=== PATIENT | female | born 1940 | race Caucasian/White ===

== ENCOUNTER → 2017-10-20 13:33 | Outpatient (CLI) | payer MEDICARE, OTHER, SELFPAY ==
--- NOTE | 2017-10-20 | DI.MG.S_ITS ---
BILATERAL DIGITAL SCREENING MAMMOGRAM 3D/2D WITH CAD: 10/20/2017 CLINICAL: Routine screening. Family history of breast cancer. Comparison is made to exams dated: 09/24/2016 mammogram, 07/31/2015 mammogram, and 07/12/2014 mammogram - [facility]. There are scattered fibroglandular elements in both breasts. Current study was also evaluated with a Computer Aided Detection (CAD) system. There is a calcification in the right breast at 12 o'clock middle depth. No other significant masses, calcifications, or other findings are seen in either breast. IMPRESSION: INCOMPLETE: NEEDS ADDITIONAL IMAGING EVALUATION The calcification in the right breast is indeterminate. Additional views with possible ultrasound are recommended. This exam was interpreted at Station ID: [id number]. NOTE: For mammograms, a report in lay terms will be sent to the patient. Approximately 15% of breast malignancies will not be visualized mammographically. In the management of a palpable breast mass, a negative mammogram must not discourage biopsy of a clinically suspicious lesion. Electronically Signed By: Hayden lozoya/graham:10/21/2017 07:39:16 letter sent: Additional Imaging Needed ACR BI-RADS Category 0: Incomplete [id number]
== END ==
PROVIDERS: Family Provider Family Medicine; PCP Family Medicine; Visit Provider Family Medicine
DX: Z12.31 Encounter for screening mammogram for malignant neoplasm of breast (principal); Z80.3 Family history of malignant neoplasm of breast; R92.1 Mammographic calcification found on diagnostic imaging of breast
CPT/HCPCS: 77063; 77067

== ENCOUNTER → 2017-11-18 10:02 | Outpatient (CLI) | payer MEDICARE, OTHER, SELFPAY ==
--- NOTE | 2017-11-18 | DI.MG.S_ITS ---
UNILATERAL RIGHT DIGITAL DIAGNOSTIC MAMMOGRAM 3D/2D WITH ADDITIONAL VIEWS: 11/18/2017 CLINICAL: Additional evaluation requested from prior study. Comparison is made to exams dated: 10/20/2017 mammogram, 09/24/2016 mammogram, and 07/31/2015 mammogram - [facility]. There are scattered fibroglandular elements in right breast. There are a linear heterogeneous calcifications in the right breast at 12 o'clock middle depth. These are more numerous than on prior exams. No other significant masses or calcifications are seen in the breast. IMPRESSION: SUSPICIOUS OF MALIGNANCY The linear heterogeneous calcifications in the right breast are at a low suspicion for malignancy. Differential considerations include dystrophic calcifications associated with scar. A stereotactic biopsy is recommended to exclude neoplsm. This exam was interpreted at Station ID: [id number]. NOTE: For mammograms, a report in lay terms will be sent to the patient. Approximately 15% of breast malignancies will not be visualized mammographically. In the management of a palpable breast mass, a negative mammogram must not discourage biopsy of a clinically suspicious lesion. Electronically Signed By: Shakila davis/:11/18/2017 10:38:48 letter sent: Biopsy Required ACR BI-RADS Category 4a: Suspicious abnormality - low suspicion for malignancy [id number]
== END ==
PROVIDERS: PCP Family Medicine; Visit Provider Family Medicine
DX: R92.1 Mammographic calcification found on diagnostic imaging of breast (principal)
CPT/HCPCS: 77065; G0279

== ENCOUNTER → 2017-12-14 08:26 | Outpatient (CLI) | payer MEDICARE, OTHER, SELFPAY ==
--- NOTE | 2017-12-14 | DI.ECHO.S_ITS ---
[facility] +---------+ : : [address] [place] : : : : [id number] : : : : Phone: [phone]+ Echocardiogram Report + + :Name: ROMMEL DAWKINS Study Date: 12/14/2017 Height: 63 in : :[facility] Weight: 145 lb : : Gender: Female BSA: 1.7 m2 : :: 1940 Age: 77 yrs BP: 152/76 mmHg: :Reason For Study: Palpitations : : Performed By: Monik Ji : :Referring: HSANTHI ARVIZU : + + Interpretation Summary Comparison is made with the echocardiogram of 07-25-15. Please note that the patient was in bigeminy during most of the exam. The left ventricle is normal in size. Left ventricular wall thickness is mildly increased. Proximal septal thickening is noted. The ejection fraction is estimated to be 60-65%. Left ventricular wall motion is normal. Diastolic parameters suggest a relaxation abnormality of the left ventricle, consistent with probable normal filling pressures. The right ventricle grossly appears normal in size with probable normal systolic function. No hemodynamically significant valvular abnormalities. Procedure: A two-dimensional transthoracic echocardiogram with color flow and Doppler was performed. The study quality was technically good. Comparison is made with the echocardiogram of 07-25-15. The patient had frequent PVCs during the exam. Left Ventricle: The left ventricle is normal in size. Left ventricular wall thickness is mildly increased. Proximal septal thickening is noted. The ejection fraction is estimated to be 60-65%. Left ventricular wall motion is normal. Diastolic parameters suggest a relaxation abnormality of the left ventricle, consistent with probable normal filling pressures. Right Ventricle: The right ventricle grossly appears normal in size with probable normal systolic function. Atria: The left atrium is mildly dilated. The right atrium is mildly dilated. The interatrial septum is intact with no evidence for an atrial septal defect. Mitral Valve: The mitral valve leaflets appear borderline thickened, but open well. There is mild calcification extending into the subvalvular apparatus. There is mild mitral regurgitation. Aortic Valve: The aortic valve is trileaflet. The aortic valve opens well. There is no aortic valve stenosis. There is trace aortic regurgitation. Tricuspid Valve: The tricuspid valve is normal. There is trace tricuspid regurgitation. Pulmonary artery pressures cannot be estimated because of the lack of a measurable TR jet velocity but the IVC suggests a CVP of around 3 mmHg. Pulmonic Valve: The pulmonic valve is not well seen, but is grossly normal. There is mild pulmonic regurgitation. Great Vessels: The aortic root is normal size. The ascending aorta is normal in size. The aortic arch is normal in size. The IVC is of normal diameter and collapses greater than 50% with a sniff. This suggests a low right atrial pressure of 3 mm Hg. Pericardium/ Pleura There is no pericardial effusion. There is no pleural effusion. MMode/2D Measurements & Calculations LVIDd: 4.2 cm Ao root diam: 3.3 cm LVIDs: 2.8 cm Aortic Jxn: 2.6 cm FS: 31.9 % asc Aorta Diam: 3.5 cm EPSS: 0.20 cm Ao Arch Diam (Prox Trans): 2.8 cm IVSd: 0.95 cm LVPWd: 0.83 cm LV dyer. diameter/BSA (cm/m^2): 2.5 LV sys. diameter/BSA (cm/m^2): 1.7 LA dimension: 4.3 cm RA long axis: 4.7 cm LA A2 area: 24.2 cm2 RA area: 18.1 cm2 LA A4 area: 23.4 cm2 RA vol: 59.7 ml LA length (vol): 5.5 cm RA : 35.4 ml/m2 LA vol: 87.6 ml IVC diam: 1.8 cm LA vol index: 51.9 ml/m2 RVDd major: 4.6 cm RVD2 (mid): 3.2 cm Doppler Measurements & Calculations Ao V2 max: 190.6 cm/sec MV E max alan: 66.7 cm/sec Ao V2 mean: 102.4 cm/sec MV A max alan: 77.2 cm/sec Ao max P.5 mmHg MV E/A: 0.86 Ao mean P.5 mmHg Med Peak E' Alan: 6.0 cm/sec Ao V2 VTI: 35.8 cm E/E' med: 11.1 Lat Peak E' Alan: 6.0 cm/sec E/E' lat: 11.1 E/e' average: 11.1 MV dec time: 0.29 sec MV P1/2t: 84.2 msec TR max alan: 275.4 cm/sec MV P1/2t max alan: 67.4 cm/sec TR max P.3 mmHg MVA(P1/2t): 2.6 cm2 PA V2 max: 97.1 cm/sec PA V2 mean: 62.2 cm/sec PA mean P.8 mmHg PA Accel Time: 0.08 sec Electronically signed by: Natalio Vyas M.D. on Reading Physician:12/14/2017 08:10 PM
== END ==
PROVIDERS: PCP Family Medicine; Visit Provider Family Medicine
DX: I34.0 Nonrheumatic mitral (valve) insufficiency (principal); I37.1 Nonrheumatic pulmonary valve insufficiency; R00.2 Palpitations
CPT/HCPCS: 93306

== ENCOUNTER 2018-02-19 16:44 | Emergency (ER) | payer MEDICARE, OTHER, SELFPAY ==
[2018-02-19 16:59] VITALS: BP 224/89; PULSE 60; RESP 18; TEMP 36.5; O2SAT 97; BMI 24.0
--- NOTE | 2018-02-19 17:21 | DI.RAD.S_ITS ---
PROCEDURE: XR NASAL BONES MIN 3V INDICATIONS: tripped and fell, now with nasal abrasion/swelling and pain TECHNIQUE: 3 views of the nasal bones acquired. COMPARISON: None. FINDINGS: Bones: No convincing radiographic evidence of a nasal fracture. Nasal septum is midline. Moderate multilevel degenerative changes of the cervical spine. Dental amalgam noted. Soft tissues: No suspicious soft tissue calcifications. IMPRESSION: No convincing radiographic evidence of an acute nasal fracture. Consider followup radiographs or facial CT if there is continued clinical concern. Dictated by: Madi Conteh M.D. on 02/19/2018 at 18:11 Approved by: Madi Conteh M.D. on 02/19/2018 at 18:15
--- NOTE | 2018-02-19 19:07 | ED.FALL ---
HPI - Fall General Chief Complaint: Fall Stated Complaint: walking and fell and hurt face Time Seen by Provider: 02/19/18 18:29 Source: patient Mode of arrival: ambulatory Limitations: no limitations History of Present Illness HPI Narrative: 77-year-old nonsmoking female, without any use of blood thinners or alcohol presents with a chief complaint of a mechanical ground level fall just prior to arrival. She was walking and tripped, falling forward and striking her face. She denies loss of consciousness, nausea, vomiting or any focal neurologic findings. She has some tenderness to the bridge of her nose and a small superficial laceration as well as some tenderness to her left thumb which is worse with motion. She denies any neck or back pain. MD complaint: fall Onset (ago): minute(s) Fall from: standing Fall witnessed: no Place fall occurred: home Loss of consciousness: none Prolonged down time: no Symptoms prior to fall: none Context: tripped/slipped Location of injury: head and face Related Data Home Medications Medication Instructions Recorded Confirmed [FISH OIL] PO Q DAY #2 06/01/07 alprazolam 0.25 mg PO HSP #0 06/14/11 HYDROCODONE/ACET 2 tab PO Q4HP #0 06/20/11 (Hydrocodon-Acetaminophen 5-325) Allergies Allergy/AdvReac Type Severity Reaction Status Date / Time Tetracyclines [TETRACYCLINES] Allergy Severe MANY Verified 02/19/18 17:11 YEARS AGO, ALDEN SHOT HALLUCINATIONS Review of Systems Review of Systems All systems reviewed & are unremarkable except as noted in HPI and below Constitutional Denies chills, Denies fever(s), Reports headache(s), Denies lethargy and Denies weakness Eyes Denies change in vision, Denies eye discharge, Denies irritation and Denies loss of vision ENT Ears, Nose, Mouth, and Throat: Denies change in voice, Reports headache(s), Denies neck pain, Reports nose pain and Denies sore throat Cardiovascular Denies chest pain, Denies irregular heart rhythm, Denies lightheadedness, Denies palpitations, Denies dyspnea, Denies dyspnea on exertion and Denies orthopnea Respiratory Denies cough, Denies dyspnea, Denies dyspnea on exertion and Denies wheezing Gastrointestinal Gastrointestinal: Denies abdominal pain, Denies change in bowel habits, Denies diarrhea, Denies nausea and Denies vomiting Genitourinary Denies hematuria, Denies flank pain, Denies urinary incontinence and Denies urinary urgency Musculoskeletal Reports joint swelling, Reports limited range of motion and Denies neck pain Integumentary/Breasts Denies pruritus, Denies erythema, Denies rash and Denies wounds Neurologic Denies confusion, Reports headache(s), Denies loss of vision and Denies weakness Psychiatric Denies anxiety, Denies confusion, Denies depression, Denies homicidal ideation and Denies suicidal ideation Endocrine Denies palpitations Hematologic/Lymphatic Denies easy bruising Allergic/Immunologic Denies wheezing Exam Narrative Exam Narrative: GENERAL: GCS 15, alert and oriented x3. Mild distress HEAD: Atraumatic. Normocephalic. No temporal or scalp tenderness. EYES: Pupils equal round and reactive. Extraocular motions intact. No scleral icterus. No injection or drainage. ENT: Swelling and tenderness to the bridge of the nose with 0.5cm small superficial laceration. Nose without bleeding, purulent drainage or septal hematoma. Throat without erythema, tonsillar hypertrophy or exudate. Uvula midline. Airway patent. NECK: Trachea midline. No JVD or lymphadenopathy. Supple, nontender, no meningeal signs. CARDIOVASCULAR: Regular rate and rhythm without murmurs, gallops, or rubs. RESPIRATORY: Clear to auscultation. Breath sounds equal bilaterally. No wheezes, rales, or rhonchi. GASTROINTESTINAL: Abdomen soft, non-tender, nondistended. No hepato-splenomegaly, or palpable masses. No guarding. EXTREMITIES: Full but painful ROM of L thumb and wrist. No pain in snuffbox or worsening with axial loading of thumb. Closed. Neuro in tact. No obvious deformity. BACK: Nontender without deformity or crepitance. No flank tenderness. NEURO: AOx3. SKIN: No rash or erythema. Initial Vital Signs Initial Vital Signs: Vital Signs Temperature 97.7 F 02/19/18 16:59 Pulse Rate 60 02/19/18 16:59 Respiratory Rate 18 02/19/18 16:59 Blood Pressure 224/89 H 02/19/18 16:59 Pulse Oximetry 97 02/19/18 16:59 [facility] Social History Smoking Status: Never smoker Procedures Laceration Repair Laceration 1: Site: face Side (If applicable): right Size (cm): 0.5 Description: linear Depth: simple, single layer Pre-repair: wound explored Size (cm): other (dermabond) Orthopedic Splinting/Casting Injury #1: Side: left Upper Extremity Injury Location: finger Upper Extremity Immobilizer: thumb spica Course Orders Ordered: ED Orders 02/19/18 19:07 XR hand LT min 3V Stat Vital Signs - 8 hr 02/19/18 20:14 Pulse Rate 51 L Respiratory Rate 15 Blood Pressure [Right Arm] 179/74 H Pulse Oximetry 100 MDM - Fall Differential Diagnosis Likely syncope and concussion without loss of consciousness Imaging Data Nasal / Wrist Xray: Radiologist's impression: [address] [address] XRay Report Signed Patient: Frances Conley MR#: [id number] : 1940 Acct:[id number] Age/Sex: 77 / F Date of Service: 02/19/18 Loc: ED Accession Number: [id number] Procedure: XR nasal bones min 3V Ordering Provider: Hammad Frederick D.O. PROCEDURE: XR NASAL BONES MIN 3V INDICATIONS: tripped and fell, now with nasal abrasion/swelling and pain TECHNIQUE: 3 views of the nasal bones acquired. COMPARISON: None. FINDINGS: Bones: No convincing radiographic evidence of a nasal fracture. Nasal septum is midline. Moderate multilevel degenerative changes of the cervical spine. Dental amalgam noted. Soft tissues: No suspicious soft tissue calcifications. IMPRESSION: No convincing radiographic evidence of an acute nasal fracture. Consider followup radiographs or facial CT if there is continued clinical concern. Dictated by: Madi Conteh M.D. on 02/19/2018 at 18:11 Approved by: Madi Conteh M.D. on 02/19/2018 at 18:15 PROCEDURE: XR HAND LT MIN 3V INDICATIONS: fall with left hand pain TECHNIQUE: 3 views of the hand(s) acquired. COMPARISON: [facility], , HAND 3V LEFT, 01/23/2009, 13:46. FINDINGS: Bones: Subtle lucency of the proximal metaphysis of the left fifth metacarpal is unchanged from comparison exam of 01/23/2009, and is thus consistent with a vascular channel. Carpal bones are normally aligned. No convincing fracture or dislocation of the left hand identified. The bones are diffusely demineralized. Mild degenerative changes of the interphalangeal joints with moderate degenerative change of the first metacarpophalangeal joint. Soft tissues: No suspicious soft tissue calcifications. No radiopaque foreign body. IMPRESSION: No convincing radiographic evidence of acute fracture of the left hand. Consider followup radiographs in 7-10 days if there is continued clinical concern. Dictated by: Madi Conteh M.D. on 02/19/2018 at 20:51 Discharge Plan Departure Patient Disposition: Home Clinical Impression: Contusion of nose, Contusion of hand Discharge Date/Time: 02/19/18 20:31 Interventions: ED Discharge Assessment Last Done: 02/19/18 20:23 Instructions: DI for Laceration Repair With Dermabond, DI for Contusion Activity Restrictions/Additional Instructions: *You have been diagnosed with [ nasal contusion, laceration, and left hand contusion ] *What to do: *Take medications as directed *Follow up with your primary care provider in 2-3 days, call for an appointment. Let them know you were seen in the Emergency Department and that we ask that you be seen in follow up *Return to ER if you should have any new, worsening or concerning symptoms Prescriptions: No Action [FISH OIL] PO Q DAY Qty: 2 RF: 0 alprazolam 0.25 MG tablet 0.25 mg PO HSP Qty: 0 RF: 0 HYDROCODONE/ACET (Hydrocodon-Acetaminophen 5-325) 2 tab PO Q4HP Qty: 0 RF: 0 Referrals: Shani Gutierrez MD [Primary Care Provider] -
[2018-02-19 19:10] VITALS: BP 204/83; PULSE 69; RESP 18; O2SAT 98
--- NOTE | 2018-02-19 19:12 | PC.NURSE ---
pt due to take amlodipine tonight.
[2018-02-19 20:14] VITALS: BP 179/74; PULSE 51; RESP 15; O2SAT 100
--- NOTE | 2018-02-20 03:53 | ED_ITS ---
HPI - Fall General Chief Complaint: Fall Stated Complaint: walking and fell and hurt face Time Seen by Provider: 02/19/18 18:29 Source: patient Mode of arrival: ambulatory Limitations: no limitations History of Present Illness HPI Narrative: 77-year-old nonsmoking female, without any use of blood thinners or alcohol presents with a chief complaint of a mechanical ground level fall just prior to arrival. She was walking and tripped, falling forward and striking her face. She denies loss of consciousness, nausea, vomiting or any focal neurologic findings. She has some tenderness to the bridge of her nose and a small superficial laceration as well as some tenderness to her left thumb which is worse with motion. She denies any neck or back pain. MD complaint: fall Onset (ago): minute(s) Fall from: standing Fall witnessed: no Place fall occurred: home Loss of consciousness: none Prolonged down time: no Symptoms prior to fall: none Context: tripped/slipped Location of injury: head and face Related Data Home Medications Medication Instructions Recorded Confirmed [FISH OIL] PO Q DAY #2 06/01/07 alprazolam 0.25 mg PO HSP #0 06/14/11 HYDROCODONE/ACET 2 tab PO Q4HP #0 06/20/11 (Hydrocodon-Acetaminophen 5-325) Allergies Allergy/AdvReac Type Severity Reaction Status Date / Time Tetracyclines [TETRACYCLINES] Allergy Severe MANY Verified 02/19/18 17:11 YEARS AGO, ALDEN SHOT HALLUCINATIONS Review of Systems Review of Systems All systems reviewed & are unremarkable except as noted in HPI and below Constitutional Denies chills, Denies fever(s), Reports headache(s), Denies lethargy and Denies weakness Eyes Denies change in vision, Denies eye discharge, Denies irritation and Denies loss of vision ENT Ears, Nose, Mouth, and Throat: Denies change in voice, Reports headache(s), Denies neck pain, Reports nose pain and Denies sore throat Cardiovascular Denies chest pain, Denies irregular heart rhythm, Denies lightheadedness, Denies palpitations, Denies dyspnea, Denies dyspnea on exertion and Denies orthopnea Respiratory Denies cough, Denies dyspnea, Denies dyspnea on exertion and Denies wheezing Gastrointestinal Gastrointestinal: Denies abdominal pain, Denies change in bowel habits, Denies diarrhea, Denies nausea and Denies vomiting Genitourinary Denies hematuria, Denies flank pain, Denies urinary incontinence and Denies urinary urgency Musculoskeletal Reports joint swelling, Reports limited range of motion and Denies neck pain Integumentary/Breasts Denies pruritus, Denies erythema, Denies rash and Denies wounds Neurologic Denies confusion, Reports headache(s), Denies loss of vision and Denies weakness Psychiatric Denies anxiety, Denies confusion, Denies depression, Denies homicidal ideation and Denies suicidal ideation Endocrine Denies palpitations Hematologic/Lymphatic Denies easy bruising Allergic/Immunologic Denies wheezing Exam Narrative Exam Narrative: GENERAL: GCS 15, alert and oriented x3. Mild distress HEAD: Atraumatic. Normocephalic. No temporal or scalp tenderness. EYES: Pupils equal round and reactive. Extraocular motions intact. No scleral icterus. No injection or drainage. ENT: Swelling and tenderness to the bridge of the nose with 0.5cm small superficial laceration. Nose without bleeding, purulent drainage or septal hematoma. Throat without erythema, tonsillar hypertrophy or exudate. Uvula midline. Airway patent. NECK: Trachea midline. No JVD or lymphadenopathy. Supple, nontender, no meningeal signs. CARDIOVASCULAR: Regular rate and rhythm without murmurs, gallops, or rubs. RESPIRATORY: Clear to auscultation. Breath sounds equal bilaterally. No wheezes , rales, or rhonchi. GASTROINTESTINAL: Abdomen soft, non-tender, nondistended. No hepato-splenomegaly , or palpable masses. No guarding. EXTREMITIES: Full but painful ROM of L thumb and wrist. No pain in snuffbox or worsening with axial loading of thumb. Closed. Neuro in tact. No obvious deformity. BACK: Nontender without deformity or crepitance. No flank tenderness. NEURO: AOx3. SKIN: No rash or erythema. Initial Vital Signs Initial Vital Signs: Vital Signs Temperature 97.7 F 02/19/18 16:59 Pulse Rate 60 02/19/18 16:59 Respiratory Rate 18 02/19/18 16:59 Blood Pressure 224/89 H 02/19/18 16:59 Pulse Oximetry 97 02/19/18 16:59 [facility] Social History Smoking Status: Never smoker Procedures Laceration Repair Laceration 1: Site: face Side (If applicable): right Size (cm): 0.5 Description: linear Depth: simple, single layer Pre-repair: wound explored Size (cm): other (dermabond) Orthopedic Splinting/Casting Injury #1: Side: left Upper Extremity Injury Location: finger Upper Extremity Immobilizer: thumb spica Course Orders Ordered: ED Orders 02/19/18 19:07 XR hand LT min 3V Stat Vital Signs - 8 hr 02/19/18 20:14 Pulse Rate 51 L Respiratory Rate 15 Blood Pressure [Right Arm] 179/74 H Pulse Oximetry 100 MDM - Fall Differential Diagnosis Likely syncope and concussion without loss of consciousness Imaging Data Nasal / Wrist Xray: Radiologist's impression: [address] [address] XRay Report Signed Patient: Frances Conley MR#: [id number] : 1940 Acct:[id number] Age/Sex: 77 / F Date of Service: 02/19/18 Loc: ED Accession Number: [id number] Procedure: XR nasal bones min 3V Ordering Provider: Hammad Frederick D.O. PROCEDURE: XR NASAL BONES MIN 3V INDICATIONS: tripped and fell, now with nasal abrasion/swelling and pain TECHNIQUE: 3 views of the nasal bones acquired. COMPARISON: None. FINDINGS: Bones: No convincing radiographic evidence of a nasal fracture. Nasal septum is midline. Moderate multilevel degenerative changes of the cervical spine. Dental amalgam noted. Soft tissues: No suspicious soft tissue calcifications. IMPRESSION: No convincing radiographic evidence of an acute nasal fracture. Consider followup radiographs or facial CT if there is continued clinical concern. Dictated by: Madi Conteh M.D. on 02/19/2018 at 18:11 Approved by: Madi Conteh M.D. on 02/19/2018 at 18:15 PROCEDURE: XR HAND LT MIN 3V INDICATIONS: fall with left hand pain TECHNIQUE: 3 views of the hand(s) acquired. COMPARISON: [facility], , HAND 3V LEFT, 01/23/2009, 13:46. FINDINGS: Bones: Subtle lucency of the proximal metaphysis of the left fifth metacarpal is unchanged from comparison exam of 01/23/2009, and is thus consistent with a vascular channel. Carpal bones are normally aligned. No convincing fracture or dislocation of the left hand identified. The bones are diffusely demineralized. Mild degenerative changes of the interphalangeal joints with moderate degenerative change of the first metacarpophalangeal joint. Soft tissues: No suspicious soft tissue calcifications. No radiopaque foreign body. IMPRESSION: No convincing radiographic evidence of acute fracture of the left hand. Consider followup radiographs in 7-10 days if there is continued clinical concern. Dictated by: Madi Conteh M.D. on 02/19/2018 at 20:51 Discharge Plan Departure Patient Disposition: Home Clinical Impression: Contusion of nose, Contusion of hand Discharge Date/Time: 02/19/18 20:31 Interventions: ED Discharge Assessment Last Done: 02/19/18 20:23 Instructions: DI for Laceration Repair With Dermabond, DI for Contusion Activity Restrictions/Additional Instructions: *You have been diagnosed with [ nasal contusion, laceration, and left hand contusion ] *What to do: *Take medications as directed *Follow up with your primary care provider in 2-3 days, call for an appointment. Let them know you were seen in the Emergency Department and that we ask that you be seen in follow up *Return to ER if you should have any new, worsening or concerning symptoms Prescriptions: No Action [FISH OIL] PO Q DAY Qty: 2 RF: 0 alprazolam 0.25 MG tablet 0.25 mg PO HSP Qty: 0 RF: 0 HYDROCODONE/ACET (Hydrocodon-Acetaminophen 5-325) 2 tab PO Q4HP Qty: 0 RF: 0 Referrals: Shani Gutierrez MD [Primary Care Provider] -
== END 2018-02-19 20:31 | disposition home or self-care (01) ==
PROVIDERS: Emergency Provider Emergency Medicine; PCP Family Medicine
DX: S00.33XA Contusion of nose, initial encounter (principal); S60.222A Contusion of left hand, initial encounter; W01.0XXA Fall on same level from slipping, tripping and stumbling without subsequent striking against object, initial encounter
CPT/HCPCS: 70160; 73130; 99283; 99284

== ENCOUNTER → 2018-02-28 14:18 | Outpatient (CLI) | payer MEDICARE, OTHER, SELFPAY ==
--- NOTE | 2018-02-28 | DI.RAD.S_ITS ---
PROCEDURE: XR WRIST LT MIN 3V INDICATIONS: LEFT WRIST PAIN TECHNIQUE: 4 views of the wrist were acquired. COMPARISON: None. FINDINGS: Bones: No fractures or dislocations. There is mild degeneration of the 1st carpometacarpal joint. No suspicious bony lesions. Scaphoid view: The scaphoid appears intact. Soft tissues: No suspicious soft tissue calcifications. IMPRESSION: 1. No fracture or dislocation. Dictated by: Zach Landis M.D. on 02/28/2018 at 17:18 Approved by: Zach Landis M.D. on 02/28/2018 at 17:18
== END ==
PROVIDERS: PCP Family Medicine; Visit Provider Family Medicine
DX: M25.532 Pain in left wrist (principal)
CPT/HCPCS: 73110

== ENCOUNTER → 2018-05-29 07:59 | Outpatient (CLI) | payer MEDICARE, OTHER, SELFPAY ==
[2018-05-29 08:42] LABS: Add Manual Diff / Slide Review NO; Basophils Absolute Auto 100 /uL (0-100); Basophils Percent Auto 1.4 % (0-2); Eosinophils Absolute Auto 100 /uL (0-450); Eosinophils Percent Auto 2.5 % (2-4); Hematocrit 44.1 % (36-46); Hemoglobin 15.1 g/dL (12.0-16.0); Lymphocytes Absolute Auto 1000 /uL (1100-4500); Lymphocytes Percent Auto 22.1 % (25-40); Mean Corpuscular HGB Conc 34.1 % (30-36); Mean Corpuscular Volume 96.5 fL (80-100); Monocytes Absolute Auto 500 /uL (0-900); Monocytes Percent Auto 11.8 % (3-14); Neutrophils Absolute Auto 2900 /uL (1500-7000); Neutrophils Percent Auto 62.2 % (50-75); Platelet Count 295 X10^3/uL (150-400); Red Blood Cell Count 4.57 X10^6/uL (4.0-5.2); White Blood Cell Count 4.6 X10^3/uL (4.5-11.0)
[2018-05-29 09:10] LABS: Alanine Aminotransferase 32 IU/L (9-52); Albumin 4.4 g/dL (3.5-5.0); Albumin Globulin Ratio 1.4 (1.0-2.8); Alkaline Phosphatase 52 U/L (38-126); Aspartate Aminotransferase 28 IU/L (14-36); BUN Creatinine Ratio 23.3 (6-22); Bilirubin Total 0.7 mg/dL (0.2-1.3); Blood Urea Nitrogen 14 mg/dL (7-17); Calcium 9.5 mg/dL (8.4-10.2); Carbon Dioxide 28 mmol/L (22-32); Chloride 97 mmol/L (98-107); Cholesterol 211 mg/dL (140-199); Estimated Glomerular Filt Rate > 60.0 mL/min (>60); Globulin 3.2 g/dL (1.7-4.1); Glucose 118 mg/dL (80-110); HDL Cholesterol 80 mg/dL (40-60); HEMOLYSIS < 15 (0-50); LDL Cholesterol Calculated 119 mg/dL (<100); Potassium 4.4 mmol/L (3.4-5.1); Sodium 135 mmol/L (137-145); Total Protein 7.6 g/dL (6.3-8.2); Triglycerides 58 mg/dL (35-150)
[2018-05-29 09:50] LABS: Thyroid Stimulating Hormone 3.84 uIU/mL (0.47-4.68)
== END ==
PROVIDERS: PCP Family Medicine; Visit Provider Family Medicine
DX: I10 Essential (primary) hypertension (principal); E78.5 Hyperlipidemia, unspecified
CPT/HCPCS: 36415; 80053; 80061; 84443; 85025

== ENCOUNTER → 2018-12-04 12:00 | Outpatient (CLI) | payer MEDICARE, OTHER, SELFPAY ==
--- NOTE | 2018-12-04 | DI.MG.S_ITS ---
BILATERAL DIGITAL SCREENING MAMMOGRAM 3D/2D WITH CAD: 12/04/2018 CLINICAL: Routine screening. Family history of breast cancer. Comparison is made to exams dated: 10/20/2017 mammogram, 09/24/2016 mammogram, 07/31/2015 mammogram - , 12/01/2017 stereotactic biopsy - [facility], 11/18/2017 mammogram, and 07/12/2014 mammogram - . There are scattered fibroglandular elements in both breasts. Current study was also evaluated with a Computer Aided Detection (CAD) system. There is a biopsy clip in the right breast with associated post-biopsy changes/scarring. There are mole markers on both breasts. No significant masses, calcifications, or other findings are seen in either breast. There has been no significant interval change. IMPRESSION: NEGATIVE There is no mammographic evidence of malignancy. A 1 year screening mammogram is recommended. This exam was interpreted at Station ID: [id number]. NOTE: For mammograms, a report in lay terms will be sent to the patient. Approximately 15% of breast malignancies will not be visualized mammographically. In the management of a palpable breast mass, a negative mammogram must not discourage biopsy of a clinically suspicious lesion. Electronically Signed By: Madi Conteh M.D. ecl/:12/04/2018 18:25:20 letter sent: Normal Exam ACR BI-RADS Category 1: Negative 3341F
== END ==
PROVIDERS: PCP Family Medicine; Visit Provider Family Medicine
DX: Z12.31 Encounter for screening mammogram for malignant neoplasm of breast (principal); Z80.3 Family history of malignant neoplasm of breast
CPT/HCPCS: 77063; 77067

== ENCOUNTER → 2019-03-27 12:40 | Outpatient (CLI) | payer MEDICARE, OTHER, SELFPAY | PROVIDERS: PCP Family Medicine; Referring Provider Family Medicine; Visit Provider Family Medicine | DX: M85.851 Other specified disorders of bone density and structure, right thigh (principal); Z78.0 Asymptomatic menopausal state; Z90.722 Acquired absence of ovaries, bilateral; Z82.62 Family history of osteoporosis | CPT/HCPCS: 77080 ==

== ENCOUNTER → 2019-12-06 10:27 | Outpatient (CLI) | payer MEDICARE, OTHER, SELFPAY ==
--- NOTE | 2019-12-06 | DI.MG.S_ITS ---
BILATERAL DIGITAL SCREENING MAMMOGRAM 3D/2D WITH CAD: 12/06/2019 CLINICAL: Routine screening. Family history of breast cancer. Comparison is made to exams dated: 12/04/2018 mammogram, 10/20/2017 mammogram, and 09/24/2016 mammogram - [facility]. There are scattered fibroglandular elements in both breasts. Current study was also evaluated with a Computer Aided Detection (CAD) system. There are benign calcifications in both breasts. There also is a biopsy clip in the right breast. There are mole markers on both breasts. No significant masses, calcifications, or other findings are seen in either breast. There has been no significant interval change. IMPRESSION: BENIGN There is no mammographic evidence of malignancy. A 1 year screening mammogram is recommended. This exam was interpreted at Station ID: [id number]. NOTE: For mammograms, a report in lay terms will be sent to the patient. Approximately 15% of breast malignancies will not be visualized mammographically. In the management of a palpable breast mass, a negative mammogram must not discourage biopsy of a clinically suspicious lesion. Electronically Signed By: Zach rodriguez/graham:12/06/2019 13:04:44 letter sent: Normal Exam ACR BI-RADS Category 2: Benign Finding(s) 3342F
== END ==
PROVIDERS: PCP Family Medicine; Referring Provider Family Medicine; Visit Provider Family Medicine
DX: Z12.31 Encounter for screening mammogram for malignant neoplasm of breast (principal); Z80.3 Family history of malignant neoplasm of breast
CPT/HCPCS: 77063; 77067

== ENCOUNTER → 2020-03-19 13:21 | Outpatient (CLI) | payer MEDICARE, OTHER, SELFPAY ==
[2020-03-19] MEDS: COVID-19 VACC #1, MRNA(MOD) 100 MCG/0.5 ML VIAL IM (13:28)
== END ==
PROVIDERS: PCP Family Medicine; Visit Provider Internal Medicine
DX: Z23 Encounter for immunization (principal)
CPT/HCPCS: 0011A; 91301

== ENCOUNTER → 2020-04-08 15:58 | Outpatient (CLI) | payer MEDICARE, OTHER, SELFPAY ==
--- NOTE | 2020-04-08 16:02 | DI.RAD.S_ITS ---
PROCEDURE: XR KNEE LT 3V INDICATIONS: LEFT KNEE PAIN TECHNIQUE: 3 views of the knee were acquired. COMPARISON: [facility], , KNEE 3V LEFT, 06/14/2011, 20:47. FINDINGS: Bones: No acute fractures or dislocations. No suspicious bony lesions. The moderate joint space narrowing is seen in the medial femorotibial compartment with marginal osteophyte formation. The lateral and anterior compartment joint spaces are grossly maintained. Soft tissues: Small joint effusion. No suspicious soft tissue calcifications. IMPRESSION: No acute osseous abnormality. Moderate degenerative changes in the medial femorotibial compartment. Small joint effusion. Dictated by: Alexx Hutson M.D. on 04/08/2020 at 16:37 Approved by: Alexx Hutson M.D. on 04/08/2020 at 16:38
== END ==
PROVIDERS: PCP Family Medicine; Referring Provider Family Medicine; Visit Provider Family Medicine
DX: M25.562 Pain in left knee (principal); M25.462 Effusion, left knee
CPT/HCPCS: 73562

== ENCOUNTER → 2020-04-16 13:21 | Outpatient (CLI) | payer MEDICARE, OTHER, SELFPAY ==
[2020-04-16] MEDS: COVID-19 VACC #2, MRNA(MOD) 100 MCG/0.5 ML VIAL IM (13:26)
== END ==
PROVIDERS: PCP Family Medicine; Visit Provider Internal Medicine
DX: Z23 Encounter for immunization (principal)
CPT/HCPCS: 0012A; 91301

== ENCOUNTER → 2020-09-04 10:38 | Outpatient (CLI) | payer MEDICARE, OTHER, SELFPAY ==
--- NOTE | 2020-09-04 | DI.RAD.S_ITS ---
PROCEDURE: XR LUMBAR SPINE 2-3V INDICATIONS: lumbar radicuopathy TECHNIQUE: 3 views of the lumbar spine were acquired. COMPARISON: [facility], CR, L-SPINE 2-3 VIEWS, 10/02/2014, 9:19. [facility], CR, L-SPINE 2-3 VIEWS, 10/17/2014, 12:48. FINDINGS: Bones: 5 isr-ros-[id number] vertebrae are present. Vertebroplasty changes are seen at the L1 vertebra without further loss of vertebral body height. There is mild S-shaped lumbar spine curvature centered at the L1 level. Grade 1 anterolisthesis of L4 on L5 does not appear significantly changed. No acute vertebral body compression fractures. No suspicious bony lesions. Facet hypertrophy is seen from L2-3 through L5-S1. Soft tissues: Overlying bowel gas pattern is normal. No suspicious soft tissue calcifications. Aortic atherosclerotic calcifications are present. IMPRESSION: 1. Vertebroplasty changes are seen at the L1 level. Mild S-shaped curvature of the thoracolumbar spine centered at L1 has increased when compared to the prior exam from 2014. 2. Unchanged grade 1 anterolisthesis of L4 on L5. 3. Multilevel spondylosis. Lumbar spine MRI may be obtained for further evaluation if indicated clinically. Dictated by: Alexx Hutson M.D. on 09/04/2020 at 13:35 Approved by: Alexx Hutson M.D. on 09/04/2020 at 13:39
== END ==
PROVIDERS: PCP Family Medicine; Referring Provider Family Medicine; Visit Provider Family Medicine
DX: M43.16 Spondylolisthesis, lumbar region (principal); M47.26 Other spondylosis with radiculopathy, lumbar region; M47.27 Other spondylosis with radiculopathy, lumbosacral region
CPT/HCPCS: 72100

== ENCOUNTER → 2020-12-31 12:14 | Outpatient (CLI) | payer MEDICARE, OTHER, SELFPAY ==
--- NOTE | 2020-12-31 | DI.RAD.S_ITS ---
PROCEDURE: XR CHEST 2V INDICATIONS: Bronchiectasis, uncomplicated TECHNIQUE: 2 views of the chest were acquired. COMPARISON: [facility], , CHEST 2 VIEW, 08/25/2016, 13:10. FINDINGS: Surgical changes and devices: Stable appearance of cement vertebroplasty of a vertebral body in the thoracolumbar junction. Lungs and pleura: Lungs are clear. No pleural effusions or pneumothorax. Mediastinum: Mediastinal contours are normal. Heart size is normal. Bones and chest wall: No suspicious bony abnormalities. Soft tissues appear unremarkable. IMPRESSION: Stable radiographic evaluation of the chest without acute cardiopulmonary abnormalities or focal airspace disease. Dictated by: Wilian Madera M.D. on 12/31/2020 at 15:51 Approved by: Wilian Madera M.D. on 12/31/2020 at 15:53
== END ==
PROVIDERS: PCP Family Medicine; Referring Provider Family Medicine; Visit Provider Family Medicine
DX: J47.9 Bronchiectasis, uncomplicated (principal)
CPT/HCPCS: 71046

== ENCOUNTER → 2021-01-23 15:24 | Outpatient (CLI) | payer MEDICARE, OTHER, SELFPAY ==
--- NOTE | 2021-01-23 15:28 | DI.RAD.S_ITS ---
PROCEDURE: XR FOOT LT MIN 3V INDICATIONS: LT FOOT PAIN TECHNIQUE: 3 views of the foot were acquired. COMPARISON: [facility], , FOOT 3V LEFT, 12/11/2007, 13:54. [facility], FOOT 3V LEFT, 03/27/2009, 13:31. FINDINGS: Bones: No fractures or dislocations. No suspicious bony lesions. Mild metatarsus adductus and hallux valgus. Mild degenerative joint disease in ankle and foot. Posterior calcaneal enthesophyte. Soft tissues: No tibiotalar joint effusion. Achilles tendon appears normal. Bunion. Mild soft tissue swelling in distal foot. IMPRESSION: 1. Mild metatarsus adductus and hallux valgus. 2. Mild degenerative joint disease. 3. Posterior calcaneal enthesopathy. Dictated by: Sil Contreras M.D. on 01/23/2021 at 18:04 Approved by: Sil Contreras M.D. on 01/24/2021 at 13:34
== END ==
PROVIDERS: PCP Family Medicine; Referring Provider Family Medicine; Visit Provider Family Medicine
DX: M20.12 Hallux valgus (acquired), left foot (principal); M19.072 Primary osteoarthritis, left ankle and foot; M79.672 Pain in left foot; M77.32 Calcaneal spur, left foot
CPT/HCPCS: 73630

== ENCOUNTER → 2021-05-14 12:09 | Outpatient (CLI) | payer MEDICARE, OTHER, SELFPAY | PROVIDERS: PCP Family Medicine; Referring Provider Family Medicine; Visit Provider Family Medicine | DX: M81.0 Age-related osteoporosis without current pathological fracture (principal); Z78.0 Asymptomatic menopausal state | CPT/HCPCS: 77080 ==

== ENCOUNTER → 2021-05-28 09:22 | Outpatient (CLI) | payer MEDICARE, OTHER, SELFPAY ==
[2021-05-28 10:38] LABS: Add Manual Diff / Slide Review NO; Basophils Absolute Auto 100 /uL (0-100); Basophils Percent Auto 1.5 % (0-2); Eosinophils Absolute Auto 100 /uL (0-450); Eosinophils Percent Auto 2.8 % (2-4); Hematocrit 42.4 % (36-46); Hemoglobin 14.6 g/dL (12.0-16.0); Lymphocytes Absolute Auto 1200 /uL (1100-4500); Lymphocytes Percent Auto 26.1 % (25-40); Mean Corpuscular HGB Conc 34.4 % (30-36); Mean Corpuscular Hemoglobin 31.9 PG (26-34); Mean Corpuscular Volume 92.8 fL (80-100); Monocytes Absolute Auto 600 /uL (0-900); Monocytes Percent Auto 13.1 % (3-14); Neutrophils Absolute Auto 2700 /uL (1500-7000); Neutrophils Percent Auto 56.5 % (50-75); Platelet Count 334 X10^3/uL (150-400); Red Blood Cell Count 4.57 X10^6/uL (4.0-5.2); Red Cell Distribution Width 13.3 % (11.6-14.8); White Blood Cell Count 4.8 X10^3/uL (4.5-11.0)
[2021-05-28 10:50] LABS: Carbon Dioxide 30 mmol/L (22-32); Chloride 93 mmol/L (98-107); HEMOLYSIS < 15 (0-50); Sodium 131 mmol/L (137-145)
== END ==
PROVIDERS: PCP Family Medicine; Referring Provider Orthopaedic Surgery; Visit Provider Orthopaedic Surgery
DX: Z01.818 Encounter for other preprocedural examination (principal); Z01.812 Encounter for preprocedural laboratory examination
CPT/HCPCS: 36415; 80051; 85025

== ENCOUNTER → 2021-06-15 12:20 | Outpatient (CLI) | payer MEDICARE, OTHER, SELFPAY ==
--- NOTE | 2021-06-15 12:24 | DI.US.S_ITS ---
PROCEDURE: US PERIPH VENOUS LOW EXTREM LT INDICATIONS: PAIN IN LEFT CALF/RULE OUT DVT TECHNIQUE: Real-time imaging, as well as color and pulse Doppler interrogation, were performed of the lower extremity deep veins from the inguinal ligament to the popliteal fossa. COMPARISON: None. FINDINGS: The common femoral, femoral and popliteal veins are normally compressible, and free of intraluminal thrombus. Color and pulse Doppler demonstrate normal phasic intraluminal flow. There is normal augmentation response to distal compression maneuver. Question ruptured Renee cyst. There is a complex cystic fluid collection posterior to the knee measuring 6.1 x 2.5 x 3.3 cm. IMPRESSION: Large Renee cyst, possibly a ruptured Renee cyst, with extensive complex fluid noted. Negative left lower extremity duplex venous ultrasound for DVT. Dictated by: Cleveland Alvarado M.D. on 06/15/2021 at 17:49 Approved by: Cleveland Alvarado M.D. on 06/15/2021 at 17:50
== END ==
PROVIDERS: PCP Family Medicine; Referring Provider Orthopaedic Surgery; Visit Provider Orthopaedic Surgery
DX: M79.662 Pain in left lower leg (principal); M71.22 Synovial cyst of popliteal space [Baker], left knee
CPT/HCPCS: 93971

== ENCOUNTER → 2021-10-29 11:19 | Outpatient (CLI) | payer MEDICARE, OTHER, SELFPAY ==
--- NOTE | 2021-10-29 11:22 | DI.RAD.S_ITS ---
PROCEDURE: XR THORACIC SPINE 2V INDICATIONS: HISTORY OF FALLING TECHNIQUE: 2 views of the thoracic spine were acquired. COMPARISON: [facility], CR, XR LUMBAR SPINE 2-3V, 09/04/2020, 10:51. [facility], CR, THORACIC SPINE 3 VIEWS, 06/14/2011, 20:47. FINDINGS: Bones: No acute fractures or dislocations. Previously identified compression deformities are again noted. Fracture with vertebroplasty/kyphoplasty changes are present at L1. Multilevel degenerative disc space narrowing is present. No suspicious bony lesions. 12 pairs of ribs are noted, and appear intact where visualized. Soft tissues: No paravertebral stripe thickening. IMPRESSION: Stable appearance of previous compression deformities with multilevel degenerative change. Dictated by: Lydia Holly M.D. on 10/29/2021 at 16:09 Approved by: Lydia Holly M.D. on 10/29/2021 at 16:10
--- NOTE | 2021-10-29 11:22 | DI.RAD.S_ITS ---
PROCEDURE: XR RIBS LT MIN 3V W CXR1V INDICATIONS: HISTORY OF FALLING TECHNIQUE: 2 views of the left ribs were acquired, along with a single view chest. COMPARISON: None. FINDINGS: Surgical changes and devices: None. Bones and chest wall: No fractures or dislocations. No suspicious bony lesions. Overlying soft tissues appear unremarkable. Lungs and pleura: No pleural effusions or pneumothorax. Lungs appear clear. Mediastinum: Mediastinal contours appear normal. Heart size is normal. IMPRESSION: No displaced rib fractures. No acute cardiopulmonary findings. Dictated by: Shakila Gagnon M.D. on 10/29/2021 at 15:19 Approved by: Shakila Gagnon M.D. on 10/29/2021 at 15:20
--- NOTE | 2021-10-29 11:22 | DI.RAD.S_ITS ---
PROCEDURE: XR FOOT RT MIN 3V INDICATIONS: HISTORY OF FALLING TECHNIQUE: 3 views of the foot were acquired. COMPARISON: [facility], CR, XR FOOT LT MIN 3V, 01/23/2021, 15:29. [facility], CR, FOOT 3V LEFT, 03/27/2009, 13:31. FINDINGS: Bones: No fractures or dislocations. No suspicious bony lesions. Plantar and posterior calcaneal enthesophytes are present. Soft tissues: No tibiotalar joint effusion. IMPRESSION: No acute osseous abnormality. If symptoms persist, follow-up radiographs and/or CT may be helpful for further evaluation. Dictated by: Alexx Hathaway M.D. on 10/29/2021 at 21:47 Approved by: Alexx Hathaway M.D. on 10/29/2021 at 21:51
== END ==
PROVIDERS: PCP Family Medicine; Referring Provider Family Medicine; Visit Provider Family Medicine
DX: Z91.81 History of falling (principal)
CPT/HCPCS: 71101; 72070; 73630

== ENCOUNTER → 2023-04-04 09:09 | Outpatient (CLI) | payer MEDICARE, OTHER, SELFPAY ==
--- NOTE | 2023-04-04 | DI.RAD.S_ITS ---
PROCEDURE: FL UPPER GI SERIES INDICATIONS: Gastro-esophageal reflux disease without esophagitis COMPARISON: None. FINDINGS: KUB: Preprocedural cork molder film demonstrates a normal bowel gas pattern. No suspicious abdominal calcifications. Visualized solid organ contours appear normal. Bony structures appear unremarkable. L1 vertebroplasty. Esophagus: Esophageal mucosa is normal on air-contrast views. Moderate esophageal dysmotility with diminished peristaltic stripping and intra esophageal reflux. A few small lower esophageal diverticuli. Small sliding-type hiatal hernia. No elicited gastroesophageal reflux. However, spontaneous gastroesophageal reflux is seen. There is normal transit of a calibrated barium tablet through the esophagus. Stomach: The stomach is normally distensible, with normal rugal fold thickness. No mucosal masses or ulcers. Pylorus and duodenal bulb appear normal in morphology. Duodenal folds are normal in thickness as well. IMPRESSION: Moderate esophageal dysmotility. Small sliding-type hiatal hernia. Mild spontaneous gastroesophageal and intra esophageal reflux. Dictated by: Benitez Hernandez M.D. on 04/04/2023 at 12:33 Approved by: Benitez Hernandez M.D. on 04/04/2023 at 12:42
== END ==
LOC: RAD 09:11
PROVIDERS: PCP Family Medicine; Referring Provider Family Medicine; Visit Provider Family Medicine
DX: K21.9 Gastro-esophageal reflux disease without esophagitis (principal); K22.4 Dyskinesia of esophagus; K44.9 Diaphragmatic hernia without obstruction or gangrene
CPT/HCPCS: 74240

== ENCOUNTER → 2023-06-15 13:48 | Outpatient (CLI) | payer MEDICARE, OTHER, SELFPAY ==
--- NOTE | 2023-06-15 13:50 | DI.MRI.S_ITS ---
PROCEDURE: MR HEAD/BRAIN WO CON INDICATIONS: MIGRAINE W/AURA AND W/O MIGRAINOSUS TECHNIQUE: Non-contrast axial T1 spin echo, axial T2 fast spin echo, sagittal and axial FLAIR, coronal T2 fast spin echo, axial gradient echo, axial diffusion and ADC through the brain. COMPARISON: [facility], CT, HEAD WITHOUT CONTRAST, 06/20/2011, 18:53. FINDINGS: Image quality: Excellent. CSF spaces: Ventricles appear symmetric in size and shape. Basal cisterns are patent. No extra-axial fluid collections. Brain: No intracranial bleeds or mass effects. There is cerebral volume loss for age. There are periventricular and deep white matter chronic small vessel ischemic changes. Brainstem appears normal. Diffusion-weighted images show no acute infarct. No chronic ischemic insults. Normal intravascular flow voids are present. Skull and face: Calvarial bone marrow is normal in signal. Orbits are normal. Note is made of bilateral lens replacements. Sinuses: Sinuses and mastoids are clear. IMPRESSION: Normal intracranial study for age, without a cause of the patient's presenting symptoms identified. To the limits of this noncontrast study, no findings masses or mass effect can be seen. Note is made of age-appropriate brain parenchymal volume loss and chronic small vessel ischemic changes. Dictated by: Sukhdeep Meadows M.D. on 06/15/2023 at 14:35 Approved by: Sukhdeep Meadows M.D. on 06/15/2023 at 14:37
== END ==
LOC: MRI 13:49
PROVIDERS: PCP Family Medicine; Referring Provider Family Medicine; Visit Provider Family Medicine
DX: G43.109 Migraine with aura, not intractable, without status migrainosus (principal)
CPT/HCPCS: 70551

== ENCOUNTER → 2023-06-28 11:11 | Outpatient (CLI) | payer MEDICARE, OTHER, SELFPAY ==
--- NOTE | 2023-06-28 11:13 | DI.RAD.S_ITS ---
PROCEDURE: XR DEXA AXIAL SKELETON INDICATIONS: Age-related osteoporosis COMPARISON: [facility], , XR DEXA AXIAL SKELETON, 05/14/2021, 12:50. [facility], CR, XR DEXA AXIAL SKELETON, 03/27/2019, 13:28. FINDINGS: Lumbar Spine (L1 and L2 excluded due to increased density): Bone mineral density 0.946 g/cm2, T score -1.4, dissimilar scan type does not allow for statistical comparison. Previously-1.5. Left Hip: Bone mineral density is 0.744 g/cm2, T score -1.6, stable. Left Femoral Neck: Bone mineral density 0.508 g/cm2, T score -3.1, osteoporosis. Right Hip: Bone mineral density 0.690 g/cm2, T score -2.1, dissimilar scan type does not allow for statistical comparison. Previously-2.0. Right Femoral Neck: Bone mineral density 0.544 g/cm2, T score -2.7, osteoporosis. Fracture Risk Calculation (when applicable): Not reported due to osteoporosis diagnosis. (T score greater or equal to -1.0 to: NORMAL) (T score from -1.1 to -2.4: OSTEOPENIA) (T score less than or equal to -2.5: OSTEOPOROSIS) IMPRESSION: Osteoporosis. Follow-up guidelines as follows: Osteoporosis: Consider a repeat DEXA and Vertebral Fracture Assessment (VFA) exam in 2 years or sooner if medically necessary, to reassess this patient's status. Osteopenia: Consider a repeat DEXA in 2-3 years to reassess this patient's status, or if there is a new clinical indication. Normal: Consider a repeat DEXA in 5 years or sooner, or if there is a new clinical indication. Dictated by: John Rincon M.D. on 06/28/2023 at 12:53 Approved by: John Rincon M.D. on 06/28/2023 at 12:55
== END ==
PROVIDERS: PCP Family Medicine; Referring Provider Family Medicine; Visit Provider Family Medicine
DX: M81.0 Age-related osteoporosis without current pathological fracture (principal)
CPT/HCPCS: 77080

== ENCOUNTER → 2023-08-27 13:48 | Outpatient (CLI) | payer MEDICARE, OTHER, SELFPAY ==
--- NOTE | 2023-08-27 13:49 | DI.MRI.S_ITS ---
PROCEDURE: MR STROKE Pre- and post-contrast brain MRI, non-contrast brain MR angiogram, pre- and postcontrast neck MR angiogram INDICATIONS: MIGRAINE W/AURA AND W/O MIGRANOSUS/SEIZURE TECHNIQUE: Brain: Noncontrast axial T1 spin echo, axial T2 fast spin echo, sagittal and axial FLAIR, coronal T2 fast spin echo, axial gradient echo, axial diffusion and ADC through the brain. After the administration of contrast, axial 3D VIBE of the cranial vasculature and brain. Brain MRA: Non-contrast 3-D time of flight MR angiogram, with multiple ebaleqx-bgoitxfnq-lbnnwvaslg (MIP) reformats performed. Neck MRA: Axial and sagittal TruFISP through the neck. Coronal dynamic MR angiogram during administration of contrast in the arterial and venous phases, with 3-dimenstional tidpimr-sszvotiuy-zjciuvzolh (MIP) reformats constructed from subtraction images. COMPARISON: [facility], MR, MR HEAD/BRAIN WO CON, 06/15/2023, 14:04. FINDINGS: Image quality: Excellent. BRAIN: The ventricular system and cortical sulci demonstrate atrophy, consistent for the patient's stated age. There are areas of increased T2/FLAIR signal intensity within the periventricular and subcortical white matter. There is no acute intra-or extra axial fluid collection. No acute hemorrhage, mass lesion or midline shift. Brainstem is unremarkable. There are no areas of restricted diffusion. Globes are symmetrical. Sinuses are aerated. Osseous structures are intact. BRAIN MR ANGIOGRAM: Anterior circulation: Intracranial internal carotid arteries are normal in size and enhancement. The flow within the paired anterior cerebral arteries is normal and symmetric. The flow within the middle cerebral arteries is normal and symmetric. The anterior communicating artery is seen. No stenoses, occlusions, or aneurysms. Posterior circulation: There is persistent of origin of the posterior circulation bilaterally. The visualized portions of the vertebral arteries demonstrate normal caliber, and join to form a normal appearing basilar artery. The flow within the posterior cerebral arteries is normal and symmetric. No stenoses, occlusions, or aneurysms. NECK MR ANGIOGRAM: Carotids: Great vessels demonstrate a conventional anatomy as they arise from the aortic arch. The origins of the common carotid arteries appear patent. The calibers and courses of both common carotid arteries are normal. The bifurcation regions appear normal bilaterally. The internal carotid arteries demonstrate normal course and caliber. Posterior circulation: The origins of the vertebral arteries are obscured by artifact and unable to be evaluated for stenosis. More superior portions of both vertebral arteries demonstrate normal course and caliber, and join to form a normal appearing basilar artery. Miscellaneous: Subclavian arteries appear patent. Pre-contrast images through the neck show no soft tissue abnormalities. IMPRESSION: 1. No acute intracranial process. 2. Mild to moderate atrophy and chronic microvascular ischemic changes. 3. No areas of hemodynamically significant stenosis, vascular occlusion or aneurysmal dilation within the anterior circulation. 4. No areas of hemodynamically significant stenosis, vascular occlusion or aneurysmal dilation within the neck vasculature. 5. No areas of hemodynamically significant stenosis, vascular occlusion or aneurysmal dilation within the posterior circulation, noting incomplete visualization of the vertebral artery origins. Dictated by: Lydia Holly M.D. on 08/29/2023 at 11:04 Approved by: Lydia Holly M.D. on 08/29/2023 at 11:16
== END ==
LOC: MRI 13:49
PROVIDERS: PCP Family Medicine; Referring Provider Family Medicine; Visit Provider Family Medicine
DX: G43.109 Migraine with aura, not intractable, without status migrainosus (principal); R56.9 Unspecified convulsions
CPT/HCPCS: 70544; 70549; 70553; A9579

== ENCOUNTER 2023-09-05 00:03 | Emergency (ER) | payer MEDICARE, OTHER, SELFPAY ==
[2023-09-05] VITALS (9 sets, daily range): BP systolic 131–200; BP diastolic 58–92; PULSE 61–74; RESP 16–20; TEMP 36.8; O2SAT 93–99; BMI 28.3
--- NOTE | 2023-09-05 01:33 | ED.HA ---
HPI - Headache General Chief Complaint: Headache Stated Complaint: migraine, seizures Time Seen by Provider: 09/05/23 01:10 Mode of arrival: Wheelchair History of Present Illness HPI Narrative: 81-year-old female presents for evaluation of worsening migraine headaches as well as reports of increasing seizure-like activity at home. Patient states that she has a history of migraines that previously were well controlled on as needed Nurtec. Over the last 2-3 weeks patient's has had to increase her Zyrtec and has added on Imitrex for migraines, but has increasingly poor control of her headaches. She states that she was having jerking activity of her upper and lower extremities occasionally with these headaches, which she googled and states is consistent with myoclonic jerks. She was followed by her primary care doctor for these headaches and has been referred to Neurology. One week prior patient underwent MRI and MRA imaging of her brain that was reportedly normal. Patient was told that if her headaches worsen or if she has worsening of her seizure-like activity she should come to the ER for evaluation. Patient states she was having difficulty functioning due to the frequency of her headaches and the worsening jerking activity of her upper and lower extremities. She currently does not have a headache but this evening she had several incidences of jerking activity so she decided to come to the ER per her primary care doctor's recommendations. Related Data Home Medications Medication Instructions Recorded Confirmed [FISH OIL] PO Q DAY ##2 06/01/07 alprazolam 0.25 mg tablet 0.25 mg PO HSP ##0 06/14/11 HYDROCODONE/ACET 2 tab PO Q4HP ##0 06/20/11 (Hydrocodon-Acetaminophen 5-325) Allergies Allergy/AdvReac Type Severity Reaction Status Date / Time Tetracyclines [TETRACYCLINES] Allergy Severe MANY Verified 02/19/18 17:11 YEARS AGO, ALDEN SHOT HALLUCINATIONS Patient History Social History Smoking Status: Never smoker Smoking Status: Never smoker alcohol intake frequency: 0-2 drinks per day Substance Use Type: does not use Exam Initial Vital Signs Initial Vital Signs: Vital Signs Temperature 98.2 F 09/05/23 00:26 Pulse Rate 74 09/05/23 00:26 Respiratory Rate 16 09/05/23 00:26 Blood Pressure 200/92 H 09/05/23 00:26 Pulse Oximetry 98 09/05/23 00:26 Oxygen Delivery Method Room Air 09/05/23 00:26 Const: Awake, alert, no acute distress, nontoxic appearing Cardiac: regular rate, regular rhythm RESP: unlabored, clear bilaterally, no wheezing GI: Soft, nontender, nondistended, no rebound, no guarding MSK: Atraumatic, full range of motion, pulses equal Skin: Warm, Dry, intact, no rashes Neuro: AO x3, CN II-XII grossly intact, moves all extremities Procedures Lumbar Puncture Time Out Performed: Yes Patient Position: upright Skin Prep: Povidone-Iodine 1% Local Anesthetic: lidocaine 1% Amount of anesthesia used (mL): 10 Spinal Needle Gauge: 22G Interspace Used: L4-L5 Fluid Initially Obtained: clear Complications: none Course Orders Ordered: Discontinued Medications Fentanyl (Fentanyl 100 Mcg/2 Ml Inj) 50 mcg IV NOW ONE Stop: 09/05/23 02:25 Last Admin: 09/05/23 02:37 Dose: 50 mcg Documented By: VINCENT Vital Signs Vital signs: Vital Signs - 8 hr 09/05/23 00:26 09/05/23 01:01 09/05/23 01:30 Temperature 98.2 F Pulse Rate 74 67 74 Respiratory Rate 16 Blood Pressure 200/92 H Pulse Oximetry 98 95 99 Oxygen Delivery Method Room Air 09/05/23 02:00 09/05/23 02:30 09/05/23 02:41 Temperature Pulse Rate 61 63 Respiratory Rate Blood Pressure 168/77 H Pulse Oximetry 98 97 Oxygen Delivery Method 09/05/23 02:41 09/05/23 03:00 09/05/23 03:00 Temperature Pulse Rate 69 68 Respiratory Rate 17 Blood Pressure 157/71 H Pulse Oximetry 95 93 Oxygen Delivery Method 09/05/23 03:30 09/05/23 03:30 Temperature Pulse Rate 65 Respiratory Rate 20 Blood Pressure 131/58 L Pulse Oximetry 94 Oxygen Delivery Method MDM - Headache Differential Diagnosis Differential diagnosis: Likely migraine, tension headache and headache Lab Data 09/05/23 01:50 09/05/23 01:50 Labs: Lab Results 09/05/23 09/05/23 Range/Units 01:50 03:16 WBC 9.6 (4.5-11.0) X10^3/uL RBC 4.59 (4.0-5.2) X10^6/uL Hgb 14.8 (12.0-16.0) g/dL Hct 42.2 (36-46) % MCV 91.9 (80-100) fL MCH 32.2 (26-34) PG MCHC 35.0 (30-36) % RDW 13.4 (11.6-14.8) % Plt Count 317 (150-400) X10^3/uL Neut % (Auto) 76.7 H (50-75) % Lymph % (Auto) 14.5 L (25-40) % [place] % (Auto) 7.0 (3-14) % Eos % (Auto) 1.1 L (2-4) % Baso % (Auto) 0.7 (0-2) % Neut # (Auto) 7400 H (2296-1487) /uL Lymph # (Auto) 1400 (0814-9183) /uL [place] # (Auto) 700 (0-900) /uL Eos # (Auto) 100 (0-450) /uL Baso # (Auto) 100 (0-100) /uL Sodium 130 L (137-145) mmol/L Potassium 3.6 (3.4-5.1) mmol/L Chloride 98 (98-107) mmol/L Carbon Dioxide 28 (22-32) mmol/L BUN 24 H (7-17) mg/dL Creatinine 0.64 (0.52-1.04) mg/dL Estimated GFR > 60 (>60) mL/min BUN/Creatinine Ratio 37.5 H (6-22) Glucose 123 H (80-110) mg/dL Calcium 9.1 (8.4-10.2) mg/dL Magnesium 2.1 (1.6-2.3) mg/dL Total Bilirubin 0.4 (0.2-1.3) mg/dL AST 25 (14-36) IU/L ALT 19 (<35) IU/L Alkaline Phosphatase 58 (38-126) U/L Total Protein 7.6 (6.3-8.2) g/dL Albumin 4.3 (3.5-5.0) g/dL Globulin 3.3 (1.7-4.1) g/dL Albumin/Globulin Ratio 1.3 (1.0-2.8) CSF Tube Number 3 CSF Volume 1.0 ml CSF Appearance Clear (Clear) CSF Color Colorless (Colorless) CSF WBC 1 (0-5) MONO/uL CSF RBC 82 RBC /uL CSF Mononuclear WBCs 27 % CSF Polynuclear WBCs 73 % CSF Glucose 71 H (40-70) mg/dL CSF Total Protein 39 (12-60) mg/dL CSF IgG/Total Prot 2.0 (0.0-6.7) mg/dL MDM Narrative Medical decision making narrative: Well-appearing patient with progressive worsening of chronic headaches as well as what patient describes as jerking, seizure activity. Patient has already had recent MRI/MRA. These images were reviewed, there was no acute findings identified. Since patient's symptoms have not significantly changed since her most recent MRI did not feel there is any utility in repeating imaging at this time. There has been no interval change in symptoms or trauma, only increasing frequency. Laboratory work ordered for assessment. Patient states that she was pending neurology referral for her refractory headaches. I offered a lumbar puncture to the patient to see if this would yield any insight into patient's worsening headaches and seizure activity. Patient stated that she would like to proceed with lumbar puncture. LP performed with clear fluid. Exact opening pressure not measured, however LP flow was slow drip and did not appear to be overly pressurized. Patient informed of lab and MRI/MRA results from 1 week prior. Recommended close PCP follow up. Tube of CSF to be kept in freezer if PCP request any additional testing. Spoke with Dr. Han, who is on-call for patient's PCP, who stated that they would reach out to patient's PCP Dr. Gutierrez, and let them know that CSF is available if desired. Discharge Plan Departure Patient Disposition: Home Clinical Impression: Headache Instructions: DI for Headache Activity Restrictions/Additional Instructions: Continue to take your prescribed headache medications. Your CSF results look reassuring here today, the lab has a tube that should be good for least another week if any additional testing is needed. Prescriptions: No Action [FISH OIL] PO Q DAY Qty: 2 alprazolam 0.25 MG tablet 0.25 mg PO HSP Qty: 0 HYDROCODONE/ACET (Hydrocodon-Acetaminophen 5-325) 2 tab PO Q4HP Qty: 0 Referrals: Shani Gutierrez MD [Primary Care Provider] - Stand Alone Forms: Patient Portal/API
--- NOTE | 2023-09-05 01:34 | EKG_ITS ---
[address] [address] Test Date: 2023-09-05 Pat Name: Frances Conley Department: [facility] Room: Gender: Female Driller Hand: VINCENT : 1940 Requested By: Order Number: [id number] Reading MD: Earle Dow MD Measurements Intervals [place] Rate: 67 P: 67 MT: 200 QRS: 63 QRSD: 154 T: 117 QT: 494 QTc: 521 Interpretive Statements Normal sinus rhythm Left ventricular hypertrophy with QRS widening and repolarization abnormality ( [place]ney product ) Electronically Signed On 09-05-2023 7:36:55 PDT by Earle Dow MD
[2023-09-05 01:56] LABS: Add Manual Diff / Slide Review NO; Basophils Absolute Auto 100 /uL (0-100); Basophils Percent Auto 0.7 % (0-2); Eosinophils Absolute Auto 100 /uL (0-450); Eosinophils Percent Auto 1.1 % (2-4); Hematocrit 42.2 % (36-46); Hemoglobin 14.8 g/dL (12.0-16.0); Lymphocytes Absolute Auto 1400 /uL (1100-4500); Lymphocytes Percent Auto 14.5 % (25-40); Mean Corpuscular Hemoglobin 32.2 PG (26-34); Mean Corpuscular Volume 91.9 fL (80-100); Monocytes Absolute Auto 700 /uL (0-900); Neutrophils Absolute Auto 7400 /uL (1500-7000); Neutrophils Percent Auto 76.7 % (50-75); Platelet Count 317 X10^3/uL (150-400); Red Blood Cell Count 4.59 X10^6/uL (4.0-5.2); Red Cell Distribution Width 13.4 % (11.6-14.8); White Blood Cell Count 9.6 X10^3/uL (4.5-11.0)
[2023-09-05 02:09] LABS: Alanine Aminotransferase 19 IU/L (<35); Albumin 4.3 g/dL (3.5-5.0); Albumin Globulin Ratio 1.3 (1.0-2.8); Alkaline Phosphatase 58 U/L (38-126); Aspartate Aminotransferase 25 IU/L (14-36); BUN Creatinine Ratio 37.5 (6-22); Bilirubin Total 0.4 mg/dL (0.2-1.3); Blood Urea Nitrogen 24 mg/dL (7-17); Calcium 9.1 mg/dL (8.4-10.2); Carbon Dioxide 28 mmol/L (22-32); Chloride 98 mmol/L (98-107); Estimated Glomerular Filt Rate > 60 mL/min (>60); Globulin 3.3 g/dL (1.7-4.1); Glucose 123 mg/dL (80-110); HEMOLYSIS < 15 (0-50); Magnesium 2.1 mg/dL (1.6-2.3); Potassium 3.6 mmol/L (3.4-5.1); Sodium 130 mmol/L (137-145); Total Protein 7.6 g/dL (6.3-8.2)
[2023-09-05] MEDS: fentaNYL 100 MCG/2 ML INJ 50 MCG IV (02:37)
[2023-09-05 04:07] LABS: CSF Tube Number 3
[2023-09-05 04:08] LABS: Appearance CSF Clear (Clear); CSF Tube Volume 1.0 mL; Color CSF Colorless (Colorless); White Blood Cell CSF 1 MONO/uL (0-5)
[2023-09-05 04:09] LABS: Red Blood Cell CSF 82 RBC /uL
[2023-09-05 04:25] LABS: Glucose CSF 71 mg/dL (40-70); Total Protein CSF 39 mg/dL (12-60)
[2023-09-05 04:40] LABS: Mononuclear WBC CSF 27 %; Polynuclear WBC CSF 73 %
== END 2023-09-05 05:40 | disposition home or self-care (01) ==
PROVIDERS: Emergency Provider Emergency Medicine; PCP Family Medicine
DX: R51.9 Headache, unspecified (principal); R56.9 Unspecified convulsions; R07.9 Chest pain, unspecified
CPT/HCPCS: 62270; 80053; 82784; 82945; 83735; 84157; 85025; 87070; 87205; 89051; 93005; 96374; 99283; 99284; J3010

== ENCOUNTER → 2023-11-08 13:15 | Outpatient (CLI) | payer MEDICARE, OTHER, SELFPAY ==
--- NOTE | 2023-11-08 13:16 | DI.MRI.S_ITS ---
PROCEDURE: MR CERVICAL SPINE WO CON INDICATIONS: CERVICALGIA TECHNIQUE: Noncontrast sagittal T1 spin echo and T2 fast spin echo, sagittal STIR, foraminal oblique sagittal T2 fast spin echo, and axial gradient echo or T2 fast spin echo through the cervical spine. COMPARISON: None. FINDINGS: Image quality: Diagnostic. Alignment and Curvature: Mild straightening of normal cervical lordosis. Bone Marrow: Marrow demonstrates normal overall signal. Small T2 vertebral body hemangioma. No suspicious intra osseous lesions. Spinal Cord: Visualized spinal cord has normal size and signal. No cerebellar tonsillar herniation. Paraspinous Soft Tissues: No paravertebral masses. Prevertebral soft tissues are normal in thickness. C2-C3: Mild bilateral uncovertebral osteoarthrosis more pronounced on the right. Mild bilateral facet arthropathy. Minimal left, mild right bilateral neuroforaminal stenosis. No significant spinal canal stenosis. C3-C4: Degenerative endplate changes. Right greater than left bilateral uncovertebral osteoarthrosis. Mild bilateral facet arthropathy. Eccentric to the right broad-based posterior disc osteophyte complex. There is moderate right and mild-moderate left bilateral neuroforaminal stenosis. No significant spinal canal stenosis. C4-C5: Moderate degenerative endplate changes. Endplate osteophyte formation. Right greater than left moderate bilateral uncovertebral osteoarthrosis. Eccentric to the right broad-based posterior disc osteophyte complex which effaces the anterior thecal sac and causes mild spinal canal stenosis. No cord signal abnormality. There is moderate right and mild-moderate left bilateral neuroforaminal stenosis. C5-C6: Degenerative endplate changes. Endplate osteophyte formation. Mild bilateral uncovertebral osteoarthrosis. Shallow broad-based posterior disc osteophyte complex. Bilateral facet arthropathy. Mild effacement of the anterior thecal sac. No significant spinal canal stenosis. Mild bilateral neuroforaminal stenosis. C6-C7: Degenerative endplate changes. Right greater than left uncovertebral osteoarthrosis and mild bilateral facet arthropathy. Shallow eccentric to the right broad-based posterior disc osteophyte complex. Moderate right and mild left bilateral neuroforaminal stenosis without significant spinal canal stenosis. C7-T1: No significant neuroforaminal or spinal canal stenosis. IMPRESSION: Moderate multilevel, multifactorial cervical spondylosis as described above by vertebral body level. Variable degrees of bilateral neuroforaminal stenosis which is more pronounced on the right side. Findings appear to be most severe at C4-5. Straightening of cervical lordosis likely related to positioning and/or concurrent muscle spasms. Dictated by: Wilian Madera M.D. on 11/08/2023 at 19:53 Approved by: Wilian Madera M.D. on 11/08/2023 at 20:06
== END ==
LOC: MRI 13:16
PROVIDERS: PCP Family Medicine; Referring Provider Family Medicine; Visit Provider Family Medicine
DX: M47.812 Spondylosis without myelopathy or radiculopathy, cervical region (principal); M54.2 Cervicalgia; M48.02 Spinal stenosis, cervical region; G43.109 Migraine with aura, not intractable, without status migrainosus; R56.9 Unspecified convulsions
CPT/HCPCS: 72141

== ENCOUNTER 2024-01-03 11:30 | Outpatient (RCR) | payer MEDICARE, OTHER, SELFPAY ==
--- NOTE | 2023-12-27 14:39 | PT.OIE ---
Current Diagnoses Benign paroxysmal vertigo, left ear (12/27/23) Visit Care Team Role Provider Type Shani Gutierrez MD Attending Provider Physician Family Provider Primary Care Provider Referring Provider Specialty: Family Practice Address: [address] [place] [address], [facility] [place], [facility] Email: [email or web address] Therapy Initial Evaluation PT-OP-A Visit Information Start: 12/25/23 07:59 Freq: Status: Active Protocol: Document 12/27/23 11:31 MB (Rec: 12/27/23 11:49 MB [id number]) Out-Patient Physical Therapy Visit Information Visit Information Visit Type Initial Evaluation Visit Note Medicare Progress note by 01/26/24 Visit Start Time 11: Visit Stop Time 12:11 Visit Number 1 Number of PELTS SKINNER Visits 0 Evaluation Information Evaluation Date 12/27/23 Precautions Precautions Fall risk PT-OP-B Current Condition Start: 12/25/23 07:59 Freq: Status: Active Protocol: Document 12/27/23 11:31 MB (Rec: 12/27/23 11:49 MB [id number]) Current Condition History of Current Condition Onset Date 10/27/23 Current Complaints Light-headedness, dizziness and imbalance History of Current Condition PMH includes migraine with aura and confusion. She has started new medication for HTN and she has had more migraines. She is awaking cardiology appointment. Pt is on a lot of BP meds. 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 On clarification, now no performance of sit-ups, no anemia, B12 deficiency and overhead lifting. No falls but close to falling at home Prior Treatments and Tests Cervical MRI 11/08/23 Moderate multilevel, multifactorial cervical spondylosis as described above by vertebral body level. Variable degrees of bilateral neuroforaminal stenosis which is more pronounced on the right side. Findings appear to be most severe at C4-5. Straightening of cervical lordosis likely related to positioning and/or concurrent muscle spasms. Treatment Goals Patient/Caregiver Goals To improve symptoms, figure out what is going on PT-OP-C Subjective Start: 12/25/23 07:59 Freq: Status: Active Protocol: Document 12/27/23 11:31 MB (Rec: 12/27/23 14:39 MB [id number]) OP-PT Subjective Patient Comments Patient Comments See history of current condition PT-OP-G Mobility & Gait Start: 12/25/23 07:59 Freq: Status: Active Protocol: Document 12/27/23 11:31 MB (Rec: 12/27/23 14:39 MB [id number]) OP Gait Assessment Comments Gait Comments Careful gait but pt is I PT-OP-H Neuro Start: 12/25/23 07:59 Freq: Status: Active Protocol: Document 12/27/23 11:31 MB (Rec: 12/27/23 14:39 MB [id number]) Vital Signs Comments Vital Signs Comments Pt supine with BP and HR LUE: 202/96, 61; standing 196/98, 65 (and pt is dizzy and may be because she rolls to the left to get up); standing 1' 201/ 93, 64. PT-OP-O Vestibular Start: 12/25/23 07:59 Freq: Status: Active Protocol: Document 12/27/23 11:31 MB (Rec: 12/27/23 14:39 MB [id number]) Vestibular Assessment Visual Testing Smooth Pursuits Horizontal Normal Smooth Pursuits Vertical Normal Vestibulo-Ocular Reflex (VOR1) Negative Positional Testing [place]-Hallpike Positive Left,Upbeating,< 60 Seconds Comments Vestibular Comments B Roll Test negative for nystagmus, positive left for symptoms PT-OP-Q Treatments Start: 12/25/23 07:59 Freq: Status: Active Protocol: Document 12/27/23 11:31 MB (Rec: 12/27/23 14:39 MB [id number]) Self-Care/Home Management Treatment Education Other Education Handout and education provided about BPPV, ed pt about speaking with doctor about high BP and also, increased migraine aura since starting new BP med, ed in proper sleeping position with increased pillow support when sleeping on side, making fluids count, gentle head movement today after BPPV treatment Canalithic Repositioning BPPV Treatment Other Comments Modified Jing for left posterior canalithiasis x2 to treat and then re-checked and clear for dizziness and nystagmus PT-OP-T Assessment and Plan Start: 12/25/23 07:59 Freq: Status: Active Protocol: Document 12/27/23 11:31 MB (Rec: 12/27/23 14:39 MB [id number]) Physical Therapy Assessment Rehab Potential Rehabilitation Potential Good Evaluation Complexity Number of Personal Factors/Comorbidities 1-2 Number of Body Systems Impaired 3 Clinical Presentation at Evaluation Evolving Impairments Impairments Balance,Coordination,Pain, Posture,Soft Tissue Mobility, Vestibular Goals 3 Impairment Lack of HEP Swatch Checker Goal (LTG) Pt will perform progressive HEP with I including VOR, postural and balance exercises to improve balance and vestibular function. LTG Duration 1 month 2 Impairment Evidence of imbalance Retirement Goal (LTG) Pt will perform WNLs on FGA to decrease fall risk. LTG Duration 1 month 1 Impairment Reports of dizziness rolling to left and when getting up Swatch Checker Goal (LTG) Pt will present with DHI reflecting no more than 10% impairment to improve quality of life d/t dizziness. LTG Duration 1 month Assessment Summary Assessment Pt is an 83 y/o female presenting with a myriad of dizziness complaints. She has a complicated medical history including migraine with aura that she reports is worse since starting a new BP medication. Her BP is high during PT and she is not orthostatic. She presents with left sided posterior canalithiasis that clears with treatment with modified Jing . PT will make further posture , range and strength assessment as needed in future treatment dates as triaged today given pt history and need to assess and treat for BPPV. Of note, pt's handwriting is small and compact and unsteady in appearance and this is neurological in nature. Her intake form will be uploaded to EMR and handwriting can be observed there. Given high BP, PT will be focusing on VOR, postural and balance exercises that should not increase BP further. Anticipate 3-5 treatments. Physical Therapy Plan Frequency and Duration Frequency of Treatment 1x/Week Duration of treatment (weeks) 4 Plan of Care Start Date 12/27/23 Plan of Care End Date 01/26/24 Therapeutic Interventions Therapeutic Interventions Balance Training,Canalithic Repositioning,Coordination Training,Gait Training,Home Exercise Program,Joint Mobilizations,Manual Therapy, Neuromuscular Re-education, Patient/Caregiver Education, Self-Care/Home Management,Soft Tissue Mobilization,Taping, Therapeutic Activities, Therapeutic Exercises, Vestibular Rehabilitation Modalities Cold Pack/Ice Massage,Electric Stimulation,Hot Packs, Ultrasound Next Visit Focus/Plan Next Note Type Treatment Note Next Visit Plan DVA testing and VOR exercise, FGA testing, racquet ball massage, chin tuck, scapular retraction, pect and cervical stretching, intrascapular muscle strengthening
--- NOTE | 2024-01-03 13:08 | PT.OTN ---
Current Diagnoses Benign paroxysmal vertigo, left ear (01/03/24) Physical Therapy Treatment Note PT-OP-A Visit Information Start: 12/25/23 07:59 Freq: Status: Active Protocol: Document 01/03/24 11:35 MB (Rec: 01/03/24 12:19 MB [id number]) Out-Patient Physical Therapy Visit Information Visit Information Visit Type Treatment Note Visit Note Medicare Progress note by 01/26/24 Visit Start Time 11:35 Visit Stop Time 12:15 Visit Number 2 Number of REGIONAL CLINICAL DIRECTOR Visits 0 Evaluation Information Evaluation Date 12/27/23 Precautions Precautions Fall risk, pt has pretty high BP 200s/100s PT-OP-B Current Condition Start: 12/25/23 07:59 Freq: Status: Active Protocol: Document 12/27/23 11:31 MB (Rec: 12/27/23 11:49 MB [id number]) Current Condition History of Current Condition Onset Date 10/27/23 Current Complaints Light-headedness, dizziness and imbalance History of Current Condition PMH includes migraine with aura and confusion. She has started new medication for HTN and she has had more migraines. She is awaking cardiology appointment. Pt is on a lot of BP meds. 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 On clarification, now no performance of sit-ups, no anemia, B12 deficiency and overhead lifting. No falls but close to falling at home Prior Treatments and Tests Cervical MRI 11/08/23 Moderate multilevel, multifactorial cervical spondylosis as described above by vertebral body level. Variable degrees of bilateral neuroforaminal stenosis which is more pronounced on the right side. Findings appear to be most severe at C4-5. Straightening of cervical lordosis likely related to positioning and/or concurrent muscle spasms. Treatment Goals Patient/Caregiver Goals To improve symptoms, figure out what is going on PT-OP-C Subjective Start: 12/25/23 07:59 Freq: Status: Active Protocol: Document 01/03/24 11:35 MB (Rec: 01/03/24 12:19 MB [id number]) OP-PT Subjective Patient Comments Patient Comments Pt states that vertigo came back severely two nights after treatment. Pt asks about Meniere's and she reports unusual hearing loss reported in left ear. She has hearing aides in both ears. Pt has roaring and ringing in left ear when she rolls on her left ear at night. She describes swarm of bees with rolling over on the left. She describes it has her head is filled at that time. Perhaps more sinus issues on the left. PT-OP-G Mobility & Gait Start: 12/25/23 07:59 Freq: Status: Active Protocol: Document 12/27/23 11:31 MB (Rec: 12/27/23 14:39 MB [id number]) OP Gait Assessment Comments Gait Comments Careful gait but pt is I PT-OP-H Neuro Start: 12/25/23 07:59 Freq: Status: Active Protocol: Document 12/27/23 11:31 MB (Rec: 12/27/23 14:39 MB [id number]) Vital Signs Comments Vital Signs Comments Pt supine with BP and HR LUE: 202/96, 61; standing 196/98, 65 (and pt is dizzy and may be because she rolls to the left to get up); standing 1' 201/ 93, 64. PT-OP-O Vestibular Start: 12/25/23 07:59 Freq: Status: Active Protocol: Document 12/27/23 11:31 MB (Rec: 12/27/23 14:39 MB [id number]) Vestibular Assessment Visual Testing Smooth Pursuits Horizontal Normal Smooth Pursuits Vertical Normal Vestibulo-Ocular Reflex (VOR1) Negative Positional Testing [place]-Hallpike Positive Left,Upbeating,< 60 Seconds Comments Vestibular Comments B Roll Test negative for nystagmus, positive left for symptoms PT-OP-Q Treatments Start: 12/25/23 07:59 Freq: Status: Active Protocol: Document 01/03/24 11:35 MB (Rec: 01/03/24 13:08 MB [id number]) Neuro Re-Education Treatment Other Activities Further testing today Comments B Roll Test and Brian-Hallpike negative for nystagmus and dizziness, B vertebral artery screen negative, no spontaneous nystagmus Self-Care/Home Management Treatment Education Other Education Ed pt in benefits of checking her BP with arm on the bed when she is having symptoms, ed in benefits of writing down full history of events including symptoms, what makes better and worse and when she saw ENT, neurologist and PCP and when and what medication changes she had so that history given is clear and consistent with all providers, ed pt in recs to follow-up with Dr. Gutierrez about medications and BP, cardiology appointment [facility] and take history written out there as well and what ENT could do as far as VNG testing. Ed pt that this PT is concerned about BP and possible cardiac issue given history and the fact that she is already taking HCTZ and working on low sodium diet. PT-OP-T Assessment and Plan Start: 12/25/23 07:59 Freq: Status: Active Protocol: Document 01/03/24 11:35 MB (Rec: 01/03/24 12:19 MB [id number]) Physical Therapy Assessment Goals 3 Impairment Lack of HEP Trouble Dispatcher Goal (LTG) Pt will perform progressive HEP with I including VOR, postural and balance exercises to improve balance and vestibular function. LTG Duration 1 month 2 Impairment Evidence of imbalance Trouble Dispatcher Goal (LTG) Pt will perform WNLs on FGA to decrease fall risk. LTG Duration 1 month 1 Impairment Reports of dizziness rolling to left and when getting up Trouble Dispatcher Goal (LTG) Pt will present with DHI reflecting no more than 10% impairment to improve quality of life d/t dizziness. LTG Duration 1 month Assessment Summary Assessment Pt emails PT after evaluation to state that she had an episode two nights after BPPV testing and treatment and asking to be checked again today. B roll test and B Brian- Hallpike are negative for nystagmus and dizziness today and so left ear BPPV is clear. Over a minute of time right and left with head extended and rotated to screen for vertebral artery. No symptoms or nystagmus. Pt's neck also appears to move well passively for age in setting of cervical changes. Pt does present with more heightened urgency in symptomology reports today and she states she looked up Meniere's disease. Pt verbalizes minutes to hours of symptoms and then states symptoms of swarm of bees is only when rolling to left side. PT reviews subjective from assessment and vestibular intake form and pt 's reports of symptoms today are not similar to eval date and PT communicates this with pt. Pt ed pt that it will be beneficial for her to write down history of symptoms with corresponding dates of medication changes, visits to ENT, neurology and PCP. PT ed pt to describe what she has experienced and not to look up diagnoses and then make descriptions: pt does tend to answer that she has symptoms if led with questions. This makes functional diagnosis very challenging. Ed pt to follow-up with Dr. Gutierrez about high BP and medication, go to cardiology appointment Feb 22 and possibility of VNG by ENT to truly rule in a vestibular issue. PT would like to progress VOR testing and exercises with pt but these two appointments have been taken up with pt providing further history and PT attempting to encourage pt and answer questions. PT is most concerned about high BP and possibility that her symptoms could be cardiac in nature since it appears she has swarm of bees sound only with rolling on the left per report today. ENT could rule out Meniere's and pt already reports taking HZTZ and being aware of low sodium diet. Will attempt VOR assessment and exercise, balance exercise and postural exercise in future PT treatments and then likely, d/c PT. Barriers to PT include high BP, possible medication side effects and challenging history and symptomology reports by patient. Physical Therapy Plan Frequency and Duration Frequency of Treatment 1x/Week Duration of treatment (weeks) 4 Plan of Care Start Date 12/27/23 Plan of Care End Date 01/26/24 Therapeutic Interventions Therapeutic Interventions Balance Training,Canalithic Repositioning,Coordination Training,Gait Training,Home Exercise Program,Joint Mobilizations,Manual Therapy, Neuromuscular Re-education, Patient/Caregiver Education, Self-Care/Home Management,Soft Tissue Mobilization,Taping, Therapeutic Activities, Therapeutic Exercises, Vestibular Rehabilitation Modalities Cold Pack/Ice Massage,Electric Stimulation,Hot Packs, Ultrasound Next Visit Focus/Plan Next Note Type Treatment Note Next Visit Plan DVA testing and VOR exercise, FGA testing, racquet ball massage, chin tuck, scapular retraction, pect and cervical stretching, intrascapular muscle strengthening
--- NOTE | 2024-01-16 10:46 | PT.OPDS ---
Current Diagnoses Benign paroxysmal vertigo, left ear (01/03/24) Visit Care Team Role Provider Type Shani Gutierrez MD Attending Provider Physician Family Provider Primary Care Provider Referring Provider Specialty: Family Practice Address: [address] [place] [address], [facility] [place] [place], [facility] Email: [email or web address] Visit Number Visit Number 2 Discharge Summary PT-OP-B Current Condition Start: 12/25/23 07:59 Freq: Status: Active Protocol: Document 12/27/23 11:31 MB (Rec: 12/27/23 11:49 MB [id number]) Current Condition History of Current Condition Onset Date 10/27/23 Current Complaints Light-headedness, dizziness and imbalance History of Current Condition PMH includes migraine with aura and confusion. She has started new medication for HTN and she has had more migraines. She is awaking cardiology appointment. Pt is on a lot of BP meds. 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 On clarification, now no performance of sit-ups, no anemia, B12 deficiency and overhead lifting. No falls but close to falling at home Prior Treatments and Tests Cervical MRI 11/08/23 Moderate multilevel, multifactorial cervical spondylosis as described above by vertebral body level. Variable degrees of bilateral neuroforaminal stenosis which is more pronounced on the right side. Findings appear to be most severe at C4-5. Straightening of cervical lordosis likely related to positioning and/or concurrent muscle spasms. Treatment Goals Patient/Caregiver Goals To improve symptoms, figure out what is going on PT-OP-C Subjective Start: 12/25/23 07:59 Freq: Status: Active Protocol: Document 01/03/24 11:35 MB (Rec: 01/03/24 12:19 MB [id number]) OP-PT Subjective Patient Comments Patient Comments Pt states that vertigo came back severely two nights after treatment. Pt asks about Meniere's and she reports unusual hearing loss reported in left ear. She has hearing aides in both ears. Pt has roaring and ringing in left ear when she rolls on her left ear at night. She describes swarm of bees with rolling over on the left. She describes it has her head is filled at that time. Perhaps more sinus issues on the left. PT-OP-G Mobility & Gait Start: 12/25/23 07:59 Freq: Status: Active Protocol: Document 12/27/23 11:31 MB (Rec: 12/27/23 14:39 MB [id number]) OP Gait Assessment Comments Gait Comments Careful gait but pt is I PT-OP-H Neuro Start: 12/25/23 07:59 Freq: Status: Active Protocol: Document 12/27/23 11:31 MB (Rec: 12/27/23 14:39 MB [id number]) Vital Signs Comments Vital Signs Comments Pt supine with BP and HR LUE: 202/96, 61; standing 196/98, 65 (and pt is dizzy and may be because she rolls to the left to get up); standing 1' 201/ 93, 64. PT-OP-O Vestibular Start: 12/25/23 07:59 Freq: Status: Active Protocol: Document 12/27/23 11:31 MB (Rec: 12/27/23 14:39 MB [id number]) Vestibular Assessment Visual Testing Smooth Pursuits Horizontal Normal Smooth Pursuits Vertical Normal Vestibulo-Ocular Reflex (VOR1) Negative Positional Testing [place]-Hallpike Positive Left,Upbeating,< 60 Seconds Comments Vestibular Comments B Roll Test negative for nystagmus, positive left for symptoms PT-OP-T Assessment and Plan Start: 12/25/23 07:59 Freq: Status: Active Protocol: Document 01/16/24 10:45 MB (Rec: 01/16/24 10:46 MB [id number]) Physical Therapy Assessment Assessment Summary Assessment Pt cancelled her last appointment. PT calls pt and leaves a message and will discharge pt. Of note, PT notes several x-rays on and with subacute or chronic rib fractures and other spinal changes that appear chronic. PT cannot see any other notes as far as a fall, etc.
== END 2024-01-23 13:54 | disposition home or self-care (01) ==
LOC: PHYS 11:30
PROVIDERS: Family Provider Family Medicine; PCP Family Medicine; Referring Provider Family Medicine; Visit Provider Family Medicine
DX: H81.12 Benign paroxysmal vertigo, left ear (principal)
CPT/HCPCS: 95992; 97112; 97161; 97535

== ENCOUNTER → 2024-01-09 16:06 | Outpatient (CLI) | payer MEDICARE, OTHER, SELFPAY ==
--- NOTE | 2024-01-09 16:10 | DI.RAD.S_ITS ---
PROCEDURE: XR THORACIC SPINE 2V INDICATIONS: BILAT BACK PAIN TECHNIQUE: 3 views of the thoracic spine were acquired. COMPARISON: [facility], CR, XR THORACIC SPINE 2V, 10/29/2021, 11:36. FINDINGS: Bones: Post vertebroplasty changes are again noted at L1. Mild compression deformity at T7, which does not appear significantly changed when compared to the exam from 10/29/2021. No fractures or dislocations. No suspicious bony lesions. 12 pairs of ribs are noted, and appear intact where visualized. Mild to moderate multilevel degenerative endplate changes. Soft tissues: No paravertebral stripe thickening. IMPRESSION: 1. Mild to moderate thoracic spondylosis. 2. Chronic mild compression fracture at T7. No acute osseous abnormality. Approved by: Alexx Hutson M.D. on 01/10/2024 at 13:46
--- NOTE | 2024-01-09 16:10 | DI.RAD.S_ITS ---
PROCEDURE: XR LUMBAR SPINE 2-3V INDICATIONS: BILAT BACK PAIN TECHNIQUE: 3 views of the lumbar spine were acquired. COMPARISON: [facility], , XR LUMBAR SPINE 2-3V, 09/04/2020, 10:51. FINDINGS: Bones: 5 [id number] vertebrae are present. Post vertebroplasty changes are again noted at L1. There is grade 1 anterolisthesis at L4-5 and grade 1 retrolisthesis at L2-3. Mild S-shaped curvature. No acute vertebral body compression fractures. No suspicious bony lesions. Multilevel disc space narrowing and degenerative endplate changes. Multilevel facet hypertrophy. Soft tissues: Overlying bowel gas pattern is normal. No suspicious soft tissue calcifications. IMPRESSION: 1. Vertebroplasty changes again noted at the L1 level. 2. Moderate multilevel lumbar spondylosis and degenerative spondylolisthesis, minimally progressed when compared to the exam from 09/04/2020. Approved by: Alexx Hutson M.D. on 01/10/2024 at 13:40
--- NOTE | 2024-01-09 16:11 | DI.RAD.S_ITS ---
PROCEDURE: XR RIBS LT 2V INDICATIONS: BILAT BACK PAIN TECHNIQUE: 2 views of the ribs were acquired. COMPARISON: None. FINDINGS: Surgical changes and devices: None. Bones and chest wall: Subacute or chronic fractures are seen at the posterior lateral left 6th and 7th ribs. No acute displaced rib fracture is seen. Post vertebroplasty changes are noted at L1. Degenerative changes are seen at the left glenohumeral joint and acromioclavicular joint. No suspicious bony lesions. Overlying soft tissues appear unremarkable. Lungs and pleura: The visualized lung appears clear. No pleural effusions or pneumothorax are visible. Aortic atherosclerotic calcifications. IMPRESSION: Subacute or chronic fractures of the posterolateral left 6th and 7th ribs. No acute displaced rib fracture is seen. No pneumothorax. Approved by: Alexx Hutson M.D. on 01/10/2024 at 13:43
== END ==
PROVIDERS: Family Provider Family Medicine; PCP Family Medicine; Referring Provider Family Medicine; Visit Provider Family Medicine
DX: S22.42XA Multiple fractures of ribs, left side, initial encounter for closed fracture (principal); M47.816 Spondylosis without myelopathy or radiculopathy, lumbar region; M47.814 Spondylosis without myelopathy or radiculopathy, thoracic region; M48.54XA Collapsed vertebra, not elsewhere classified, thoracic region, initial encounter for fracture; M43.16 Spondylolisthesis, lumbar region; M54.50 Low back pain, unspecified; G89.29 Other chronic pain
CPT/HCPCS: 71100; 72070; 72100

== ENCOUNTER → 2024-03-28 17:09 | Outpatient (ROUT) | payer MEDICARE, OTHER, SELFPAY ==
[2024-03-28 18:22] LABS: Influenza A - CEPHEID Flu A NEGATIVE (NEGATIVE); Influenza B - CEPHEID Flu B NEGATIVE (NEGATIVE); Respiratory Syncytial Virus Negative (Negative)
[2024-03-28 18:35] LABS: COVID-19 CEPHEID 4-PLEX PCR Negative (Negative)
== END ==
PROVIDERS: Family Provider Family Medicine; PCP Family Medicine; Visit Provider Family Medicine
DX: R05.1 Acute cough (principal)
CPT/HCPCS: 0241U

== ENCOUNTER → 2024-04-10 10:42 | Outpatient (CLI) | payer MEDICARE, OTHER, SELFPAY ==
[2024-04-10 11:18] LABS: Estimated Glomerular Filt Rate > 60 mL/min (>60)
== END ==
PROVIDERS: Radiology Diagnostic Radiology; Family Provider Family Medicine; PCP Family Medicine; Referring Provider Family Medicine; Visit Provider Family Medicine
DX: E26.9 Hyperaldosteronism, unspecified (principal)
CPT/HCPCS: 36415; 82565

== ENCOUNTER → 2024-04-10 10:44 | Outpatient (CLI) | payer MEDICARE, OTHER, SELFPAY ==
--- NOTE | 2024-04-10 10:45 | DI.US.S_ITS ---
PROCEDURE: US CAROTID DOPPLER BI INDICATIONS: VERTIGO TECHNIQUE: Color and pulse Doppler interrogation was performed of both carotid systems, with image documentation and velocity measurements. COMPARISON: [facility], , CAROTID ARTERY DOPPLER BIL, 06/30/2015, 14:53. FINDINGS: Stenosis calculations are based on SRU (Society of Radiologists in Ultrasound) criteria. The flow velocities and the arterial waveforms are normal within both carotid arterial systems. Mild atherosclerotic plaque is seen on both sides, left worse than right. The estimated degree of internal carotid artery stenosis is less than 50%. Antegrade flow is confirmed within both vertebral arteries. Note is made of tortuous bilateral external carotid arteries. The right brachial blood pressure measures 169/74. The left brachial blood pressure measures 158/74. IMPRESSION: No hemodynamically significant stenosis is seen. Arterial hypertension measured at the time of this study. Dictated by: Sukhdeep Meadows M.D. on 04/10/2024 at 13:45 Approved by: Sukhdeep Meadows M.D. on 04/10/2024 at 13:46
--- NOTE | 2024-04-10 11:33 | DI.CT.S_ITS ---
PROCEDURE: CT ABDOMEN ADRENAL PROTOCOL INDICATIONS: HYPERALDOSTERONISM TECHNIQUE: Noncontrast 3 mm thick sections acquired from the diaphragms to the iliac crests. After the administration of intravenous contrast, 3 mm thick venous-phase and 15-minute delayed images acquired from the diaphragms to the iliac crests. For radiation dose reduction, the following was used: automated exposure control, adjustment of mA and/or kV according to patient size. COMPARISON: None. FINDINGS: Image quality: Excellent. Lower chest: Mild distal esophageal wall thickening and tiny hiatal hernia. ABDOMEN: Adrenal Glands: No adrenal nodules. Liver: No solid mass. Gallbladder: No wall thickening or calcified stones. Biliary ducts: No biliary dilation. Pancreas: No ductal dilation. Spleen: Size is within normal limits. Kidneys and Ureters: Symmetric enhancement. No nephrolithiasis or hydronephrosis. No hydroureter. Numerous tiny cortical cysts bilaterally. Stomach and Bowel: Stomach and visible small bowel loops are within normal limits. Diverticulosis throughout the visible loops of colon. Peritoneum: No abnormal intraperitoneal fluid. No free air. Ventral Wall: No hernia. Abdominal Nodes: No retroperitoneal or mesenteric adenopathy by size criteria. Vessels: The abdominal aorta, IVC, and portal vein are of normal caliber. Bones: Vertebroplasty cement in L1. Trace grade 1 anterolisthesis L4 on five. No suspicious bone lesions. IMPRESSION: No adrenal nodules. Colonic diverticulosis. * Dictated by: Nakita Huff M.D. on 04/10/2024 at 17:34 Approved by: Nakita Huff M.D. on 04/10/2024 at 17:39
== END ==
PROVIDERS: Family Provider Family Medicine; PCP Family Medicine; Referring Provider Psychiatry & Neurology Neurology; Visit Provider Psychiatry & Neurology Neurology
DX: R42 Dizziness and giddiness (principal); R94.118 Abnormal results of other function studies of eye; K57.90 Diverticulosis of intestine, part unspecified, without perforation or abscess without bleeding; E26.9 Hyperaldosteronism, unspecified
CPT/HCPCS: 36415; 74170; 82565; 93880; Q9967

== ENCOUNTER → 2024-04-18 08:05 | Outpatient (CLI) | payer MEDICARE, OTHER, SELFPAY ==
--- NOTE | 2024-04-18 08:07 | DI.ECHO.S_ITS ---
[place] [facility] : : [id number] : [place] [address] : : [id number] : : Phone: [phone] Echocardiogram Report + + :Name: ROMMEL DAWKINS Study Date: 04/18/2024 Height: 62 in : :[facility] ReadingLocation: Weight: 152 lb : : Gender: Female BSA: 1.7 m2 : :: 1940 Age: 83 yrs BP: 143/75 mmHg: :Reason For Study: PALPITATIONS, DIZZINESS : :Ordering Physician: ALFONZO, : :CECILIA Draper Performed By: Shweta Roberson : :Referring: CECILIA RUTLEDGE : + + Interpretation Summary The ejection fraction is estimated to be 55-60%. Diastolic parameters suggest probable normal left ventricular diastolic function and normal filling pressures. The right ventricle is normal in size and function. There is systolic anterior motion of the chordal apparatus. There is mild mitral regurgitation. There is mild aortic regurgitation. The right ventricular systolic pressure is estimated to be at least 29 mmHg based on an estimated right atrial pressure of 3 mm Hg. No significant change compared to prior study 12/14/2017. Procedure: A two-dimensional transthoracic echocardiogram with color flow and Doppler was performed. The study quality was technically adequate. Comparison is made with the echocardiogram of 12/14/2017. The patient was in sinus rhythm with heart rates between 68-75 bpm during the exam. Left Ventricle: The left ventricular cavity is small. Proximal septal thickening is noted. The ejection fraction is estimated to be 55-60%. Septal motion is consistent with conduction abnormality. Diastolic parameters suggest probable normal left ventricular diastolic function and normal filling pressures. Right Ventricle: The right ventricle is normal in size and function. Atria: The left atrial size is normal. Right atrial size is normal. There is no Doppler evidence for an interatrial shunt. Mitral Valve: The mitral valve leaflets appear borderline thickened, but open well. The mitral valve chordae are thickened and/or calcified. There is systolic anterior motion of the chordal apparatus. There is mild mitral regurgitation. Aortic Valve: The aortic valve is trileaflet. The aortic valve opens well. There is no aortic valve stenosis. There is mild aortic regurgitation. Tricuspid Valve: The tricuspid valve leaflets are thin and pliable. There is trace tricuspid regurgitation. The right ventricular systolic pressure is estimated to be at least 29 mmHg based on an estimated right atrial pressure of 3 mm Hg. Pulmonic Valve: The pulmonic valve leaflets are thin and pliable; valve motion is normal. There is trace pulmonic regurgitation. Great Vessels: The aortic root is normal size. The dimensions of the ascending aorta are normal. The IVC is of normal diameter and collapses greater than 50% with a sniff. This suggests a low right atrial pressure of 3 mm Hg. Pericardium/ Pleura There is no pericardial effusion. There is no pleural effusion. MMode/2D Measurements & Calculations LVIDd: 3.6 cm LVOT diam: 1.9 cm LVIDs: 2.6 cm Ao root diam: 3.0 cm FS: 29.2 % asc Aorta Diam: 3.3 cm IVSd: 1.1 cm Ao Arch Diam (Prox Trans): 1.9 cm LVPWd: 0.88 cm LV dyer. diameter/BSA (cm/m^2): 2.1 LV sys. diameter/BSA (cm/m^2): 1.5 LA A2 area: 17.8 cm2 RA long axis: 4.9 cm LA A4 area: 17.0 cm2 RA area: 14.0 cm2 LA length (vol): 4.9 cm RA vol: 34.2 ml LA vol: 51.9 ml RA : 20.1 ml/m2 LA vol index: 30.5 ml/m2 IVC diam: 1.3 cm RVD1 (basal): 3.9 cm RVD2 (mid): 3.2 cm TAPSE: 2.1 cm Doppler Measurements & Calculations Ao V2 max: 184.1 cm/sec LVOT Max Alan: 151.5 cm/sec Ao V2 mean: 128.7 cm/sec LV V1 max P.2 mmHg Ao max P.6 mmHg LV V1 VTI: 36.9 cm Ao mean P.4 mmHg MARCE(I,D): 2.4 cm2 Ao V2 VTI: 41.6 cm MARCE(V,D): 2.2 cm2 sev ratio: 0.89 MARCE indexed to BSA (cm^2/m^2): 1.4 AI P1/2t: 587.7 msec AI dec slope: 185.3 cm/sec2 MV E max alan: 71.9 cm/sec TR max alan: 253.3 cm/sec MV A max alan: 103.5 cm/sec TR max P.7 mmHg MV E/A: 0.69 PA V2 max: 111.4 cm/sec Med Peak E' Alan: 5.9 cm/sec PA V2 mean: 65.4 cm/sec E/E' med: 12.1 PA mean P.1 mmHg Lat Peak E' Alan: 7.2 cm/sec PA pr(Accel): 36.6 mmHg E/E' lat: 9.9 E/e' average: 11.0 MV dec time: 0.20 sec SV(LVOT): 100.3 ml Reading Physician:10:29 AM
--- NOTE | 2024-04-18 08:07 | DI.NM.S_ITS ---
PROCEDURE: NM WILLIAM PERF SPECT R&S PHARM Rest and pharmacological stress myocardial perfusion SPECT with gated imaging and ejection fraction RADIOPHARMACEUTICAL: 11.6 mCi Tc-99m tetrafosmin IV at rest and 27.3 mCi Tc-99m tetrafosmin IV at peak effect of pharmacological stress. [id number] was performed. INDICATIONS: PALPITATIONS,DIZZINESS PQRS ATTESTATIONS: Measure 322 - Is this imaging test primarily performed on a low-risk surgery patient for preoperative evaluation within 30 days preceding their low-risk non-cardiac surgery? Low-risk surgery is defined as cardiac or myocardial infarction less than 1%, including (but not limited to) endoscopic procedures, superficial procedures, cataract surgery, and excisional breast surgery: Answer: No Measure 323 - Is this imaging test performed primarily for the monitoring of an asymptomatic patient who had percutaneous coronary intervention on the visit date or within 2 years of the visit date? Answer: No Measure 324 - Is this imaging test performed primarily for the initial detection and risk assessment on an asymptomatic, low coronary heart disease patient? Low CHD risk definition = clinicians should consider the maximum number of available patient factors used to estimate risk based on Joy (ATP III criteria), typically age, gender, diabetes, smoking status, and use of blood pressure medication, and integrate age appropriate estimates for missing elements, such as LDL or standard blood pressure. Answer: No TECHNIQUE: Radiopharmaceutical was injected at peak stress test, and also at rest. SPECT images were obtained. SPECT myocardial perfusion images were displayed in short axis, horizontal long axis, and vertical long axis views. Gated images were reviewed using [employer] software. COMPARISON: None. CARDIAC STRESS: A pharmacologic stress test was performed under the supervision of an attending staff, using an infusion of 0.4 mg of Lexiscan. Hemodynamic data: There is normal blood pressure and heart rate response to pharmacologic stress. Symptoms: The patient denied anginal chest pain. Aminophylline: No EKG: Non diagnostic changes of ischemia due to underlying left bundle branch block; no ectopy. FINDINGS: Raw data: There is good myocardial uptake of radiotracer. No significant motion artifacts. Gwhq-tc-zaeoa ratio is 0.30 (normal is less than 0.38 for tetrafosmin tracer). Left ventricle function: Gated images demonstrate normal left ventricular wall thickening. No segmental wall motion abnormalities. No transient ischemic dilation; TID is 1.05 (normal less than 1.3). Left ventricle resting end diastolic volume is 86 mL. Left ventricle stress ejection fraction is 82; normal range is above 45%. Myocardial perfusion: Rest images had slight hypoperfusion in the mid anterior segment. No other perfusion defects were noted. Stress images had the same perfusion defect. No prone images obtained. With the presence of normal gated images, this is most likely breast attenuation. IMPRESSION: 1. Negative Lexiscan myocardial perfusion scan for ischemia. 2. Probable breast attenuation. 3. Low risk stress test. Dictated by: Roderick Worrell M.D. on 04/18/2024 at 16:58 Approved by: Roderick Worrell M.D. on 04/18/2024 at 17:00
== END ==
PROVIDERS: Family Provider Family Medicine; PCP Family Medicine; Referring Provider Internal Medicine Cardiovascular Disease; Visit Provider Internal Medicine Cardiovascular Disease
DX: R00.2 Palpitations (principal); R42 Dizziness and giddiness; I08.0 Rheumatic disorders of both mitral and aortic valves
CPT/HCPCS: 78452; 93017; 93306; A9502; J2785